=== PATIENT | female | born 1935 | race Caucasian/White ===

== ENCOUNTER 2018-03-31 07:39 | Inpatient (IN) ==
[2018-03-31] MEDS ORDERED: Morphine Inj 4 MG/ML Vial IV.PUSH ONE (07:57)
--- NOTE | 2018-03-31 07:57 | ED ---
HPI General Chief Complaint: Fall Stated Complaint: Fall Complaint Time Seen by Provider: 03/31/18 07:45 History of Present Illness HPI Narrative: This is a 83-year-old female with history of hypertension, who patient today with complaints of right wrist pain, right hip pain, right ankle pain after mechanical fall. Patient states that she was getting out of bed this morning about 5 AM when she became slightly dizzy and fell to the floor. She denies any loss of consciousness. She reports the pain as above. She states the pain is about a 2 out of 10 on the pain scale. There is no reported head neck or back pain. The patient states she takes a baby aspirin and is not on any other blood thinners. She last ate last night. Related Data Home Medications Medication Instructions Recorded Confirmed alendronate [Fosamax] 70 mg PO QWEEK 03/31/18 03/31/18 aspirin 81 mg PO DAILY 03/31/18 03/31/18 cholecalciferol (vitamin D3) 1,000 mg PO DAILY 03/31/18 03/31/18 [Vitamin D3] metoprolol tartrate 25 mg PO BID 03/31/18 03/31/18 multivitamin [Multiple Vitamins] 1 tab PO DAILY 03/31/18 03/31/18 Allergies Allergy/AdvReac Type Severity Reaction Status Date / Time No Known Allergies Allergy Verified 03/31/18 07:43 Review of Systems ROS: all other systems reviewed are negative Constitutional Reports system reviewed and no additional complaints, except as docu Eyes Reports system reviewed and no additional complaints, except as docu ENT Reports system reviewed and no additional complaints, except as docu Cardiovascular Denies chest pain, Denies syncope and Denies palpitations Respiratory Denies chest congestion, Denies cough and Denies dyspnea Gastrointestinal Denies abdominal pain, Denies nausea and Denies vomiting Genitourinary Reports system reviewed and no additional complaints, except as docu Musculoskeletal Denies back pain, Reports limited range of motion (Secondary to pain), Denies numbness, Denies tingling and Reports other (Right wrist, right hip, right ankle pain.) Neurologic Denies focal weakness, Denies numbness and Denies weakness PMF Medical History Medical History FH: cholecystectomy (Acute) FH: total knee replacement (Acute) H/O: hysterectomy (Acute) HTN (hypertension) (Acute) Surgical History Surgical History History of lumpectomy of right breast (Acute) Hx of tonsillectomy (Acute) Social History Social History Smoking Status: Former smoker How Often Do You Have a Drink Containing Alcohol: Never Recent Travel in [place] within the Last 8 Weeks: No Recent Out of Country Travel within the Last 8 Weeks: No Exam Narrative Exam Narrative: GENERAL: Well-developed well-nourished female who is lying supine. Patient is in no acute respiratory distress. SKIN: Focused skin assessment warm/dry. HEAD: Atraumatic. Normocephalic. EYES: No scleral icterus. No injection or drainage. ENT: No nasal bleeding or discharge. Mucous membranes pink and moist. NECK: Trachea midline. Supple. CARDIOVASCULAR: Regular rate and rhythm. No murmur appreciated. RESPIRATORY: No accessory muscle use. Clear to auscultation. Breath sounds equal bilaterally. GASTROINTESTINAL: Abdomen soft, non-tender, nondistended. No pulsatile masses. MUSCULOSKELETAL: Tenderness to palpation in the right wrist. There is bruising in the posterior wrist. Tenderness palpation over the right hip. No shortening of her right lower extremity. No external rotation. Patient also has subjective tenderness to the right lateral malleolus of the ankle. There is no obvious deformity noted. NEUROLOGICAL: Awake and alert. No obvious cranial nerve deficits. Motor grossly within normal limits. Normal speech. PSYCHIATRIC: Appropriate mood and affect; insight and judgment normal. Course Initial Documented Vital Signs Temperature 98.6 F 03/31/18 07:44 Pulse Rate 92 H 03/31/18 07:44 Respiratory Rate 16 03/31/18 07:44 Pulse Oximetry 94 L 03/31/18 07:44 Last Documented Vital Signs Temperature 98.6 F 03/31/18 07:44 Pulse Rate 92 H 03/31/18 07:44 Respiratory Rate 16 03/31/18 07:44 Pulse Oximetry 94 L 03/31/18 07:44 Medical Decision Making MDM Narrative Medical decision making narrative: 83-year-old female presents after falling while getting out of bed. Patient has a distal right radius intra-articular fracture. Patient also has a comminuted right intertrochanteric fracture. Patient will be admitted to the medicine service. There is a call out to the orthopedic physician. Preoperative labs, EKG and chest x-ray have been ordered. Patient is n.p.o. since last night. Medical Screen Exam Complete: Yes Emergency Medical Condition: Yes Differential Diagnosis Differential Diagnosis: Fracture versus dislocation versus contusion Imaging Data Radiologist's impression: Ankle X-Ray 03/31/18 07:45 CONCLUSION: No acute bony abnormalities. Soft tissue swelling laterally. Chest X-Ray 03/31/18 07:45 CONCLUSION: No acute findings. Hip X-Ray 03/31/18 07:45 CONCLUSION: Comminuted intertrochanteric fracture proximal right femur. Wrist X-Ray 03/31/18 07:45 CONCLUSION: Intra-articular fracture distal right radius. Discharge Plan Discharge Disposition Patient Disposition: 30 Still Patient Discharge Details Diagnosis: Closed comminuted intertrochanteric fracture of right femur, Fracture of radius , distal, right, closed Physicians Team ED Provider: Phillip Dillon Primary Care Provider: UNKNOWN, Rxs /Orders / Referrals /Forms Prescriptions: No Action multivitamin [Multiple Vitamins] Tablet 1 tab PO DAILY RF: 0 alendronate [Fosamax] 70 mg Tablet 70 mg PO QWEEK RF: 0 aspirin 81 mg Tablet,Chewable 81 mg PO DAILY RF: 0 cholecalciferol (vitamin D3) [Vitamin D3] 1,000 unit Capsule 1,000 mg PO DAILY RF: 0 metoprolol tartrate 25 mg Tablet 25 mg PO BID RF: 0 Status ED Status: With Doctor
--- NOTE | 2018-03-31 09:19 | XR ---
EXAM DATE: 03/31/2018 9:10 AM EDT AGE/SEX: 83 years / Female INDICATIONS: Fell this morning, pain right ankle, wrist and hip, right ankle appears swollen on late ral side CLINICAL DATA: This is the patient's initial encounter. Patient reports that signs and symptoms have been present for 1 day and indicates a pain score of 7/10. MEDICAL/SURGICAL HISTORY: None. None. COMPARISON: No prior exams available for comparison. FINDINGS: Mild soft tissue swelling. Normal alignment. Mild osteoarthritis. No acute bony abnormalities. CONCLUSION: No acute bony abnormalities. Soft tissue swelling laterally. Electronically signed by: Van Jaime MD 03/31/2018 9:17 AM EDT
--- NOTE | 2018-03-31 09:19 | XR ---
EXAM DATE: 03/31/2018 9:12 AM EDT AGE/SEX: 83 years / Female INDICATIONS: Fell today, pain right side of chest and ribs, right wrist, right hip and ankle CLINICAL DATA: This is the patient's initial encounter. Patient reports that signs and symptoms have been present for 1 day and indicates a pain score of 4/10. MEDICAL/SURGICAL HISTORY: None. None. COMPARISON: No prior exams available for comparison. FINDINGS: A single AP view of the chest demonstrates the lungs to be symmetrically aerated without evidence of mass, infiltrate or effusion. The cardiomediastinal contours are unremarkable. Osseous structures a re intact. CONCLUSION: No acute findings. Electronically signed by: Van Jaime MD 03/31/2018 9:18 AM EDT
--- NOTE | 2018-03-31 09:20 | XR ---
EXAM DATE: 03/31/2018 9:14 AM EDT AGE/SEX: 83 years / Female INDICATIONS: Fell today, right hip pain CLINICAL DATA: This is the patient's initial encounter. Patient reports that signs and symptoms have been present for 1 day and indicates a pain score of 8/10. MEDICAL/SURGICAL HISTORY: None. None. COMPARISON: No prior exams available for comparison. FINDINGS: There is a slightly comminuted intertrochanteric fracture of the proximal right femur with varus angu lation. No dislocation. Bones are osteopenic. CONCLUSION: Comminuted intertrochanteric fracture proximal right femur. Electronically signed by: Van Jaime MD 03/31/2018 9:19 AM EDT
--- NOTE | 2018-03-31 09:23 | XR ---
EXAM DATE: 03/31/2018 9:17 AM EDT AGE/SEX: 83 years / Female INDICATIONS: Fell today, right wrist pain CLINICAL DATA: This is the patient's initial encounter. Patient reports that signs and symptoms have been present for 1 day and indicates a pain score of 9/10. MEDICAL/SURGICAL HISTORY: None. None. COMPARISON: No prior exams available for comparison. FINDINGS: There is a mildly displaced intra-articular fracture of the distal radius. No dislocation. 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 Osteopenia. CONCLUSION: Intra-articular fracture distal right radius. Electronically signed by: Van Jaime MD 03/31/2018 9:22 AM EDT
--- NOTE | 2018-03-31 10:07 | P.HPFP ---
History of Present Illness Primary Care Physician: UNKNOWN History of Present Illness: This patient is an 83-year-old female with a history of bilateral knee replacement and hypertension who presents the ED after an unwitnessed mechanical fall. Patient is originally from [place] and is here locally visiting her granddaughter with her daughter and son-in-law. Patient reports that she originally got up around 0630 to go to the restroom and upon getting out of bed felt lightheaded and fell onto a carpeted floor. Per patient she fell onto her right hand side landing on her outstretched hand as well as her right hip and denies ever hitting her head. Patient reports pain immediately after falling. Patient reports that at no point did she perceive a gap in time or felt that she had lost consciousness, there is no confusion immediately afterwards, she did not have any incontinence. Patient reports he was on the floor for approximately an hour before found by family. 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 Family reports no shaking upon finding the patient on the floor. The patient reports no change in vision prior to falling, no chest pain or palpitations, no nausea or vomiting, or any focal weakness or loss of tone. Patient reports no changes in recent health and has been eating and drinking normally and felt that she is very hydrated. She does report feeling dizzy last night and according to granddaughter her gait was a little less sturdy than usual. According to the patient there are rare circumstances where she has felt dizzy in the past but has never had a mechanical fall due to her dizziness. She has also experienced imbalance intermittently for many years. She denies any recent illnesses, difficulty urinating, urinary urgency, pain with urination, chest pain, chest palpitations , fevers, chills, nausea or vomiting. PMHx: Hypertension, fibroids status post total hysterectomy, "leaky heart valve " Surgical Hx: Bilateral knee replacement, umbilical hernia repair, tonsillectomy , right breast lumpectomy with benign pathology, cholecystectomy, total vaginal hysterectomy with bilateral salpingo-oophorectomy Medications: Alendronate, aspirin, vitamin D, metoprolol, multivitamin FHx: Sister had breast cancer, sister had stroke, another sister had Alzheimer's , brother had unknown type of cancer. Children are healthy. Social Hx: Patient has been for the last 25 years and lives at home alone in [place]. Her daughter lives next door as well as multiple grandchildren that live in the area. 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 She reports smoking 1/4 pack for 20 years. Patient denies any current use of alcohol as well as any other illicit or nonprescribed drugs. Allergies: None that she knows of but reports that have been foods and fast to make her swell up Code Status: DNR - Diagnosis (1) Closed comminuted intertrochanteric fracture of right femur (2) Fracture of radius, distal, right, closed (3) Lightheadedness (4) Hypertension (5) Nutrition, metabolism, and development symptoms Review of Systems Constitutional: Denies chills, Denies fever(s), Denies headache(s), Denies dizziness, Head and neck: Patient denies any headache, neck pain or head trauma Eyes: Denies change in vision, Denies double vision, Denies blurry vision Cardiovascular: Denies chest pain, Denies fast heart rate, Denies rapid, pounding, or irregular heartbeat Respiratory: Denies shortness of breath or wheezing Gastrointestinal: Denies abdominal pain, Denies constipation, Denies loose stools, Denies nausea, Denies vomiting Genitourinary: Denies difficulty urinating, Denies painful urination, Denies urinary frequency, Denies blood in urine, patient also denies any fecal or urinary incontinence Neurological: Patient denies any loss of consciousness, focal weakness, or confusion. Musculoskeletal: Patient reports significant pain in right hip as well as right arm. She also reports soreness under the left breast. Psychiatric: Patient reports no confusion PMFSH - History History Provided By: Patient - Medical History Medical History: Medical History (Last Updated 03/31/18 @ 07:50 by Kim Davis) FH: cholecystectomy FH: total knee replacement H/O: hysterectomy HTN (hypertension) - Surgical History Surgical History: Surgical History (Last Updated 03/31/18 @ 07:50 by Kim Davis) History of lumpectomy of right breast Hx of tonsillectomy - Tobacco History Smoking Status: Former smoker - Alcohol History How Often Do You Have a Drink Containing Alcohol: Never - Travel History Recent Travel in the [place] Within the Last 8 Weeks: No Recent Travel Out of the Country Within the Last 8 Weeks: No - Immunization History Tetanus Immunization: Unsure Medications and Allergies Allergies Allergy/AdvReac Type Severity Reaction Status Date / Time No Known Allergies Allergy Verified 03/31/18 07:43 Home Medications Medication Instructions Recorded Confirmed Type alendronate [Fosamax] 70 mg PO QWEEK 03/31/18 03/31/18 History aspirin 81 mg PO DAILY 03/31/18 03/31/18 History cholecalciferol (vitamin D3) 1,000 mg PO DAILY 03/31/18 03/31/18 History [Vitamin D3] metoprolol tartrate 25 mg PO BID 03/31/18 03/31/18 History multivitamin [Multiple Vitamins] 1 tab PO DAILY 03/31/18 03/31/18 History Exam Vital signs: Vital Signs 03/31/18 07:44 Temperature 98.6 F Pulse Rate 92 H Respiratory Rate 16 Pulse Oximetry 94 L Intake & Output 03/30/18 03/31/18 03/31/18 18:59 06:59 18:59 Weight 81.647 kg Narrative: GENERAL: Elderly well-nourished, well-developed patient. No acute distress. Patient is hard of hearing and had to raise my voice for the duration of the exam. SKIN: Warm and dry. No rash. EYES: No scleral icterus. No injection or drainage. PERRLA. EOMI. HEAD: No lacerations or abrasions on scalp noted no gross deformities appreciated. NECK: Supple, trachea midline. No JVD or lymphadenopathy. CARDIOVASCULAR: Regular rate and rhythm without obvious murmurs, gallops, or rubs. RESPIRATORY: Breath sounds equal bilaterally. No accessory muscle use. CTAB. GASTROINTESTINAL: Abdomen soft, non-tender, nondistended. BS WNL. MUSCULOSKELETAL: Right leg approximately 4-5 cm shorter than left and externally rotated, significant plantar arch in both feet bilaterally. DP pulse 2+ on left 1+ on right. Sensation intact in both lower extremities with good capillary refill. No discoloration overlying lower extremities. Right arm bandaged but had no gross deformities prior to splinting. Tenderness to palpation on ribs under the left breast. Tenderness over right hip. BACK: Unable to evaluate due to pain upon moving. NEURO/PSYCH: Afocal. Awake, alert, and oriented x3. Results - Labs Result diagrams: 03/31/18 09:30 03/31/18 09:30 - Imaging Impressions Ankle X-Ray 03/31/18 07:45 CONCLUSION: No acute bony abnormalities. Soft tissue swelling laterally. Chest X-Ray 03/31/18 07:45 CONCLUSION: No acute findings. Hip X-Ray 03/31/18 07:45 CONCLUSION: Comminuted intertrochanteric fracture proximal right femur. Wrist X-Ray 03/31/18 07:45 CONCLUSION: Intra-articular fracture distal right radius. Caprini VTE Risk Assessment Caprini VTE Risk Assessment: Moderate/High Risk (score >= 2) Caprini Risk Assessment Model: Point Value = 1 Point Value = 2 Point Value = 3 Point Value = 5 Age 41-60 Minor surgery BMI > 25 kg/m2 Swollen legs Varicose veins or History of unexplained or recurrent spontaneous Oral contraceptives or hormone replacement Sepsis (< 1 month) Serious lung disease, including pneumonia (< 1 month) Abnormal pulmonary function Acute myocardial infarction Congestive heart failure (< 1 month) History of inflammatory bowel disease Medical patient at bed rest Age 61-74 Arthroscopic surgery Major open surgery (> 45 min) Laparoscopic surgery (> 45 min) Malignancy Confined to bed (> 72 hours) Immobilizing plaster cast Central venous access Age >= 75 History of VTE Family history of VTE Factor V Leiden Prothrombin [id number] Lupus anticoagulant Anticardiolipin antibodies Elevated serum homocysteine Heparin-induced thrombocytopenia Other congenital or acquired thrombophilia Stroke (< 1 month) Elective arthroplasty Hip, pelvis, or leg fracture Acute spinal cord injury (< 1 month) Prophylaxis Regimen: Total Risk Factor Score Risk Level Prophylaxis Regimen 0-1 Low Early ambulation 2 Moderate Order ONE of the following: *Sequential Compression Device (SCD) *Heparin 5000 units SQ BID 3-4 Higher Order ONE of the following medications: *Heparin 5000 units SQ TID *Enoxaparin/Lovenox 40 mg SQ daily (WT < 150 kg, CrCl > 30 mL/min) *Enoxaparin/Lovenox 30 mg SQ daily (WT < 150 kg, CrCl > 10-29 mL/min) *Enoxaparin/Lovenox 30 mg SQ BID (WT < 150 kg, CrCl > 30 mL/min) AND/OR *Sequential Compression Device (SCD) 5 or more Highest Order ONE of the following medications: *Heparin 5000 units SQ TID (Preferred with Epidurals) *Enoxaparin/Lovenox 40 mg SQ daily (WT < 150 kg, CrCl > 30 mL/min) *Enoxaparin/Lovenox 30 mg SQ daily (WT < 150 kg, CrCl > 10-29 mL/min) *Enoxaparin/Lovenox 30 mg SQ BID (WT < 150 kg, CrCl > 30 mL/min) AND *Sequential Compression Device (SCD) Assessment and Plan - Assessment (1) Closed comminuted intertrochanteric fracture of right femur Code(s): S72.141A - Displaced intertrochanteric fracture of right femur, initial encounter for closed fracture Status: Acute Plan: This patient is an 83-year-old female with a history of bilateral knee replacement and hypertension who has been admitted after sustaining a close comminuted intertrochanteric fracture of the right femur and close fracture of the distal right radius after an unwitnessed mechanical fall. -Comminuted intertrochanteric fracture proximal right femur. -CXR No acute findings. -Right Ankle X-ray: No acute bony abnormalities. Soft tissue swelling laterally. -Xray of the Right femur: Right proximal femur fracture with displaced trochanteric fragments identified. -Follow-up with orthopedic consult for possible surgery today or tomorrow -NPO until orthopedic evaluation -Pain control; [place] 5 pain scale 3-5, [place] 7.5 pain scale 6-10 every 4 as needed, morphine 4 mg every 3 as needed for breakthrough (2) Fracture of radius, distal, right, closed Code(s): S52.501A - Unspecified fracture of the lower end of right radius, initial encounter for closed fracture Status: Acute Plan: Patient suffered an intra-articular fracture of the distal right radius after unwitnessed mechanical fall. -X-ray of the wrist: Intra-articular fracture distal right radius -Follow-up with orthopedic evaluation -Pain control as stated above (3) Lightheadedness Code(s): R42 - Dizziness and giddiness Status: Acute Plan: Patient reports feeling lightheaded before falling without LOC or incontinence. Patient's fall was unwitnessed. Lightheadedness possibly due to arrhythmia in the setting of an EKG on arrival showed nonspecific ST and T wave abnormalities. -Telemetry -EKG -Trend troponin -Trend CKMB (4) Hypertension Code(s): I10 - Essential (primary) hypertension Status: Acute Plan: Patient reports having history of hypertension. Her blood pressure on arrival to the hospital was 129/60. -Patient to continue home medication, metoprolol 25 twice daily (5) Nutrition, metabolism, and development symptoms Code(s): R63.8 - Other symptoms and signs concerning food and fluid intake Status: Acute Plan: Fluids: Normal saline at 120 mL/h Electrolytes: Replete as needed Nutrition: N.p.o. until orthopedic evaluation DVT prophylaxis: SCDs (1) Closed comminuted intertrochanteric fracture of right femur Qualifiers: Encounter type: initial encounter Qualified Code(s): S72.141A - Displaced intertrochanteric fracture of right femur, initial encounter for closed fracture (2) Fracture of radius, distal, right, closed Qualifiers: Encounter type: initial encounter
[2018-03-31 10:17] LABS: Baso # (Auto) 0.1 th/mm3 (0.0-0.2); Baso % (Auto) 0.5 % (0.0-2.0); Eos # (Auto) 0.1 th/mm3 (0.0-0.4); Eos % (Auto) 0.5 % (0.0-4.0); Hemoglobin 13.8 gm/dL (11.6-15.3); Lymph # (Auto) 0.9 th/mm3 (1.0-4.8); Lymph % (Auto) 7.3 % (9.0-44.0); Mean Corpuscular HGB Conc 32.8 % (32.0-36.0); Mean Corpuscular Hemoglobin 28.2 pg (27.0-34.0); Mean Corpuscular Volume 85.9 fL (80.0-100.0); Mean Platelet Volume 8.1 fL (7.0-11.0); Mono # (Auto) 0.8 th/mm3 (0.0-0.9); Neut # (Auto) 10.7 th/mm3 (1.8-7.7); Neut % (Auto) 85.7 % (16.0-70.0); Platelet Count 195 th/mm3 (150-450); Red Blood Count 4.89 mil/mm3 (4.00-5.30); Red Cell Distribution Width 14.7 % (11.6-17.2); White Blood Count 12.4 th/mm3 (4.0-11.0)
[2018-03-31 10:34] LABS: Alanine Aminotransferase 22 U/L (10-53); Albumin 3.5 g/dL (3.4-5.0); Anion Gap 11 meq/L (5-15); Aspartate Aminotransferase 21 U/L (15-37); Blood Urea Nitrogen 26 mg/dL (7-18); Calcium 9.4 mg/dL (8.5-10.1); Carbon Dioxide 25.2 meq/L (21.0-32.0); Chloride 108 meq/L (98-107); Glomerular Filtration Rate 56 mL/min (>89); Glucose,Random 132 mg/dL (74-106); Potassium 3.6 meq/L (3.5-5.1); Sodium 144 meq/L (136-145)
[2018-03-31 10:37] LABS: Alkaline Phosphatase 61 U/L (45-117); Total Protein 6.6 g/dL (6.4-8.2)
[2018-03-31] MEDS ORDERED: Acetaminophen 325 MG Tablet PO PRN (10:44)
[2018-03-31] MEDS ORDERED: Morphine Inj 4 MG/ML Vial IV.PUSH PRN (10:44)
[2018-03-31] MEDS ORDERED: Naloxone Inj 0.4 MG/ML Vial IV.PUSH PRN (10:44)
[2018-03-31] MEDS: Sod Chloride 0.9% Inj 1,000 ML IV.CONT SCH ×2 (10:56→19:20)
[2018-03-31 11:18] LABS: Bacteria,Urine Occasional /hpf; Bilirubin,Urine Negative (Negative); Clarity,Urine Hazy (Clear); Color,Urine Yellow (Yellw/Straw); Glucose,Urine (UA) Negative (Negative); Hyaline Casts,Urine 11 /lpf (0-3); Leukocyte Esterase,Urine Small (Negative); Nitrite,Urine Negative (Negative); Specific Gravity,Urine 1.012 (1.002-1.035); Squamous Epithelial Cell,Urine <1 /hpf (0-5)
--- NOTE | 2018-03-31 11:55 | XR ---
EXAM DATE: 03/31/2018 11:51 AM EDT AGE/SEX: 83 years / Female INDICATIONS: Fracture. CLINICAL DATA: This is the patient's initial encounter. Patient reports that signs and symptoms have been present for 1 day and indicates a pain score of 5/10. MEDICAL/SURGICAL HISTORY: None. None. COMPARISON: C, HIP RIGHT W AP PELVIS 2V, 03/31/2018. . FINDINGS: Comminuted and displaced proximal femur fracture the level of the trochanters is again seen. A total knee arthroplasty is identified. The bone density is diminished. CONCLUSION: Right proximal femur fracture with displaced trochanteric fragments identified. Electronically signed by: Eder Peraza MD 03/31/2018 11:53 AM EDT
[2018-03-31] MEDS: Metoprolol Tartrate 25 MG Tablet PO SCH ×2 (13:22→20:14)
--- NOTE | 2018-03-31 15:13 | US ---
EXAM DATE: 03/31/2018 2:44 PM EDT AGE/SEX: 83 years / Female INDICATIONS: Weakness. CLINICAL DATA: This is the patient's initial encounter. Patient reports that signs and symptoms have been present for 1 day and indicates a pain score of 4/10. MEDICAL/SURGICAL HISTORY: Hypertension. Cholecystectomy. Hysterectomy. Tonsillectomy. Knee r eplacement. Lumpectomy of right breast. COMPARISON: . VELOCITY PARAMETERS: ICA/CCA Ratio: Right 1.8 , Left 1.8 ICA: Right 105 cm/sec, Left 136 cm/sec CCA: Right 59 cm/sec, Left 75 cm/sec ECA: Right 152 cm/sec, Left 77 cm/sec Vertebral: Right 47 cm/sec antegrade, Left 70 cm/sec antegrade FINDINGS: Right Carotid: Mild arteriosclerotic plaque is visualized.The waveforms are within normal limits. Left Carotid: No significant plaque is visualized. The waveforms are within normal limits. Other: None. CONCLUSION: 1. Right Internal Carotid Artery: Mild to moderate visible plaque without significant stenosis. 2. Left Internal Carotid Artery: Mild to moderate visible plaque without significant stenosis. Electronically signed by: Van Jaime MD 03/31/2018 3:12 PM EDT
[2018-03-31] MEDS ORDERED: Aspirin 325 MG Tablet PO ONE (16:00)
[2018-03-31 16:09] LABS: Troponin I 0.03 ng/mL (0.02-0.05)
[2018-03-31 16:32] LABS: CKMB Percent 1.1 % (0.0-4.0); Creatine Kinase MB 2.4 ng/mL (0.5-3.6)
--- NOTE | 2018-03-31 20:38 | P.CONOP ---
[facility] Orthopedics Consult Note - [facility] Consult date: 03/31/18 Requesting physician: Phillip Dillon Consult reason: fracture Chief complaint: R hip Fracture,right wrist fracture Narrative: 83 year old female visiting from [place] who sustained a fall at home this morning while getting out of bed. She injured her right hip and right wrist. She was taken to the ED where imaging revealed a right distal radius fracture and right hip fracture. Orthopedics was consulted for further management. Review of Systems All other systems reviewed negative except as stated in [facility] PMFSH - History History Provided By: Patient - Medical History Medical History: Medical History (Last Reviewed 03/31/18 @ 20:25 by Karen Moore MD) FH: cholecystectomy FH: total knee replacement H/O: hysterectomy HTN (hypertension) - Surgical History Surgical History: Surgical History (Last Reviewed 03/31/18 @ 20:25 by Karen Moore MD) History of lumpectomy of right breast Hx of tonsillectomy - Social History I have reviewed the patient's Social History: Yes - Tobacco History Second Hand Smoke Exposure: No Smoking Status: Never smoker - Alcohol History How Often Do You Have a Drink Containing Alcohol: Never - Substance Use History Substance History: No History of Abuse - Travel History Recent Travel in the [place] Within the Last 8 Weeks: No Recent Travel Out of the Country Within the Last 8 Weeks: No - Immunization History Tetanus Immunization: >5 Years Hx Influenza Vaccine This Season: Yes Medications and Allergies Active Medications: Active Medications Acetaminophen (Tylenol) 650 mg PO Q6HR PRN PRN Reason: PAIN SCALE 1 TO 2 Hydrocodone Bitart/Acetaminophen ([place] 5/325) 1 tab PO Q4H PRN PRN Reason: PAIN SCALE 3 TO 5 Hydrocodone Bitart/Acetaminophen ([place] 7.5/325) 1 tab PO Q4H PRN PRN Reason: PAIN SCALE 6 TO 10 Alendronate Sodium (Fosamax) 70 mg PO WEEKLY DIETER Sodium Chloride (Ns Inj) 1,000 mls @ 120 mls/hr IV.CONT .Q8H20M DIETER Last Admin: 03/31/18 10:56 Dose: 120 mls/hr Cefazolin Sodium/Dextrose (Ancef 2 Gm Premix Inj) 2 gm in 50 mls @ 100 mls/hr IV.SIG ONCE ONE Stop: 04/01/18 07:29 Metoprolol Tartrate (Lopressor) 25 mg PO BID [facility] Last Admin: 03/31/18 13:22 Dose: Not Given Morphine Sulfate (Morphine Inj) 4 mg IV.PUSH Q3H PRN PRN Reason: BREAKTHROUGH PAIN Multivitamins (Theragran) 1 tab PO DAILY [facility] Naloxone HCl (Narcan Inj) 0.4 mg IV.PUSH UNSCH PRN PRN Reason: SEE LABEL COMMENTS Sodium Chloride (Ns Flush) 2 ml IV.FLUSH BID [facility] Sodium Chloride (Ns Flush) 2 ml IV.FLUSH UNSCH PRN PRN Reason: FLUSH AFTER USING IV ACCESS Vitamin D (Vitamin D3) 1,000 unit PO DAILY [facility] Allergies Allergy/AdvReac Type Severity Reaction Status Date / Time No Known Allergies Allergy Verified 03/31/18 07:43 Home Medications Medication Instructions Recorded Confirmed Type alendronate [Fosamax] 70 mg PO QWEEK 03/31/18 03/31/18 History aspirin 81 mg PO DAILY 03/31/18 03/31/18 History cholecalciferol (vitamin D3) 1,000 mg PO DAILY 03/31/18 03/31/18 History [Vitamin D3] metoprolol tartrate 25 mg PO BID 03/31/18 03/31/18 History multivitamin [Multiple Vitamins] 1 tab PO DAILY 03/31/18 03/31/18 History Exam Vital signs: Vital Signs 03/31/18 07:44 03/31/18 11:00 03/31/18 12:34 Temperature 98.6 F Pulse Rate 92 H 78 81 Respiratory Rate 16 16 16 Blood Pressure 106/68 129/60 Pulse Oximetry 94 L 98 97 03/31/18 16:55 Temperature 98.2 F Pulse Rate 87 Respiratory Rate 17 Blood Pressure 111/59 L Pulse Oximetry 95 Intake & Output 03/31/18 03/31/18 04/01/18 06:59 18:59 06:59 Weight 81.647 kg - Constitutional no acute distress - Routine HEENT Exam Head: Present: normocephalic - Routine Neck Exam Present: supple - Routine Respiratory Exam Absent: accessory muscle use - Routine Cardiovascular Exam Present: RRR - Routine Extremities Exam Comments: right lower extremity in Culver's traction. Tender to palpation over the hip. Well healed TKA incision. Able to wiggle all toes and sensation intact with good capillary refill. right upper extremity splinted. She has mild bruising and swelling of the fingers but good capillary refill and intact sensation. +TU/OK/FC. left upper and lower extremities unremarkable. - Routine Skin Exam Present: intact Results - Labs Result Diagrams: 03/31/18 09:30 03/31/18 09:30 Labs: Laboratory Results - last 24 hr 03/31/18 03/31/18 03/31/18 09:30 09:30 09:30 WBC 12.4 H RBC 4.89 Hgb 13.8 Hct 42.0 MCV 85.9 MCH 28.2 MCHC 32.8 RDW 14.7 Plt Count 195 MPV 8.1 Neut % (Auto) 85.7 H Lymph % (Auto) 7.3 L [place] % (Auto) 6.0 Eos % (Auto) 0.5 Baso % (Auto) 0.5 Neut # (Auto) 10.7 H Lymph # (Auto) 0.9 L [place] # (Auto) 0.8 Eos # (Auto) 0.1 Baso # (Auto) 0.1 WBC Differential . Differential Comment Auto diff final Sodium 144 Potassium 3.6 Chloride 108 H Carbon Dioxide 25.2 Anion Gap 11 BUN 26 H Creatinine 0.95 Estimated GFR 56 L Random Glucose 132 H Calcium 9.4 Total Bilirubin 0.7 AST 21 ALT 22 Alkaline Phosphatase 61 Total Creatine Kinase CK-MB (CK-2) CK-MB (CK-2) % Troponin I Total Protein 6.6 Albumin 3.5 Urine Color Urine Clarity Urine pH Ur Specific [place] Urine Protein Urine Glucose (UA) Urine Ketones Urine Occult Blood Urine Nitrate Urine Bilirubin Urine Urobilinogen Ur Leukocyte Esterase Urine RBC Urine WBC Ur Squamous Epith Cells Urine Bacteria Hyaline Casts Micro UA Comment Ur Microscopic Review Urine Culture Comments Blood Type B Negative Blood Type Recheck Required Antibody Screen Negative 03/31/18 03/31/18 10:53 14:28 WBC RBC Hgb Hct MCV MCH MCHC RDW Plt Count MPV Neut % (Auto) Lymph % (Auto) [place] % (Auto) Eos % (Auto) Baso % (Auto) Neut # (Auto) Lymph # (Auto) [place] # (Auto) Eos # (Auto) Baso # (Auto) WBC Differential Differential Comment Sodium Potassium Chloride Carbon Dioxide Anion Gap BUN Creatinine Estimated GFR Random Glucose Calcium Total Bilirubin AST ALT Alkaline Phosphatase Total Creatine Kinase 216 H CK-MB (CK-2) 2.4 CK-MB (CK-2) % 1.1 Troponin I 0.03 Total Protein Albumin Urine Color Yellow Urine Clarity Hazy H Urine pH 5.0 Ur Specific [place] 1.012 Urine Protein Negative Urine Glucose (UA) Negative Urine Ketones Negative Urine Occult Blood Negative Urine Nitrate Negative Urine Bilirubin Negative Urine Urobilinogen Less than 2 Ur Leukocyte Esterase Small H Urine RBC 1 Urine WBC 1 Ur Squamous Epith Cells <1 Urine Bacteria Occasional H Hyaline Casts 11 Micro UA Comment Cath-culture not ind Ur Microscopic Review Not Reportable Urine Culture Comments Cath-cult not ind Blood Type Blood Type Recheck Antibody Screen - Diagnostic results Imaging: Impressions Carotid Doppler Study 03/31/18 00:00 CONCLUSION: 1. Right Internal Carotid Artery: Mild to moderate visible plaque without significant stenosis. 2. Left Internal Carotid Artery: Mild to moderate visible plaque without significant stenosis. Femur X-Ray 03/31/18 00:00 CONCLUSION: Right proximal femur fracture with displaced trochanteric fragments identified. Ankle X-Ray 03/31/18 07:45 CONCLUSION: No acute bony abnormalities. Soft tissue swelling laterally. Chest X-Ray 03/31/18 07:45 CONCLUSION: No acute findings. Hip X-Ray 03/31/18 07:45 CONCLUSION: Comminuted intertrochanteric fracture proximal right femur. Wrist X-Ray 03/31/18 07:45 CONCLUSION: Intra-articular fracture distal right radius. Wrist/Hand x-ray: report reviewed, image reviewed Hip x-ray: report reviewed, image reviewed Assessment and Plan - Problem List (1) Closed comminuted intertrochanteric fracture of right femur Code(s): S72.141A - Displaced intertrochanteric fracture of right femur, initial encounter for closed fracture Status: Acute Qualifiers: Encounter type: initial encounter Qualified Code(s): S72.141A - Displaced intertrochanteric fracture of right femur, initial encounter for closed fracture (2) Fracture of radius, distal, right, closed Code(s): S52.501A - Unspecified fracture of the lower end of right radius, initial encounter for closed fracture Status: Acute Qualifiers: Encounter type: initial encounter - Assessment and Plan 83 year old female with right intertrochanteric femur fracture and right distal radius fracture Plan: To OR tomorrow for fixation of right hip fracture, closed reduction and casting of right distal radius fracture. Risks, benefits and alternatives were discussed with the patient and family including risks of infection, bleeding, neurovascular injury, nonunion, malunion, failure of fixation, possible need for further surgeries and they wished to proceed with surgery. NPO after midnight.
[2018-03-31 23:24] LABS: Troponin I 0.02 ng/mL (0.02-0.05)
[2018-03-31 23:36] LABS: CKMB Percent 0.7 % (0.0-4.0); Creatine Kinase MB 1.8 ng/mL (0.5-3.6)
[2018-04-01] MEDS ORDERED: Sodium Chlor 0.9% Inj 500 ML IV.CONT ONE (03:15)
[2018-04-01] MEDS ORDERED: Chlorhexidine Gluconate 2% 1 Pack (2 Cloths) TOPICAL ONE (03:15)
[2018-04-01] MEDS: Sod Chloride 0.9% Inj 1,000 ML IV.CONT SCH ×2 (04:49→14:06)
[2018-04-01 05:38] LABS: Hematocrit 32.7 % (35.0-46.0); Hemoglobin 11.1 gm/dL (11.6-15.3); Mean Corpuscular HGB Conc 33.9 % (32.0-36.0); Mean Corpuscular Hemoglobin 29.3 pg (27.0-34.0); Mean Corpuscular Volume 86.5 fL (80.0-100.0); Platelet Count 174 th/mm3 (150-450); Red Blood Count 3.78 mil/mm3 (4.00-5.30); Red Cell Distribution Width 14.6 % (11.6-17.2); White Blood Count 6.3 th/mm3 (4.0-11.0)
[2018-04-01 06:00] LABS: Calcium 8.2 mg/dL (8.5-10.1); Carbon Dioxide 28.2 meq/L (21.0-32.0); Potassium 4.1 meq/L (3.5-5.1)
[2018-04-01] MEDS ORDERED: ceFAZolin 2 GM Premix Inj 2 GM/50 ML PIGGYBACK IV.SIG ONE (07:00)
[2018-04-01] MEDS: Metoprolol Tartrate 25 MG Tablet PO SCH ×3 (07:22→20:51)
[2018-04-01] MEDS ORDERED: Ketamine Inj 500 MG/10 ML Vial ONE (07:46)
[2018-04-01] MEDS ORDERED: Ketorolac Inj 30 MG/ML (IVP) Vial IV.PUSH ONE (07:51)
[2018-04-01] MEDS ORDERED: Glycopyrrolate Inj 1 MG/5 ML Syringe IV.PUSH ONE (07:51)
[2018-04-01] MEDS ORDERED: Lidocaine PF 1% Inj 5 ML Syringe OTHER ONE (07:51)
[2018-04-01] MEDS ORDERED: Phenylephrine/NS 1000 MCG/10ML Syringe IV.PUSH ONE (07:51)
[2018-04-01] MEDS ORDERED: Neostigmine Inj 5 MG/5 ML Syringe IV.PUSH ONE (07:51)
[2018-04-01 11:18] LABS: Baso % (Auto) 0.5 % (0.0-2.0); Eos # (Auto) 0.1 th/mm3 (0.0-0.4); Eos % (Auto) 0.7 % (0.0-4.0); Hemoglobin 9.7 gm/dL (11.6-15.3); Lymph % (Auto) 12.5 % (9.0-44.0); Mean Corpuscular HGB Conc 33.3 % (32.0-36.0); Mean Corpuscular Hemoglobin 28.9 pg (27.0-34.0); Mean Corpuscular Volume 86.6 fL (80.0-100.0); Mean Platelet Volume 8.2 fL (7.0-11.0); Mono # (Auto) 1.3 th/mm3 (0.0-0.9); Mono % (Auto) 16.2 % (0.0-8.0); Neut # (Auto) 5.5 th/mm3 (1.8-7.7); Neut % (Auto) 70.1 % (16.0-70.0); Platelet Count 177 th/mm3 (150-450); Red Blood Count 3.35 mil/mm3 (4.00-5.30); Red Cell Distribution Width 14.4 % (11.6-17.2); White Blood Count 7.8 th/mm3 (4.0-11.0)
--- NOTE | 2018-04-01 11:50 | P.BOP ---
Date of procedure: 04/01/18 Procedure: right hip open reduction internal fixation, right wrist closed reduction and casting Implants: PlasmaSi [id number] [id number], 90 mm blade Surgeon: Karen Moore MD Estimated blood loss (mL): 250 Pathology: none sent Condition: stable Disposition: PACU
[2018-04-01] MEDS ORDERED: fentaNYL Citrate Inj 100 MCG/2 ML Ampul ONE (11:57)
--- NOTE | 2018-04-01 14:37 | P.PNFP ---
Subjective Interval history: 83 yo female with HTN admitted for right hip and wrist fracture after mechanical fall. Now POD 0 s/p right hip open reduction internal fixation, right wrist closed reduction and casting. Reports feeling well post- operatively. Pain well-controlled. No CP/SOB. <BowensSloan richey Kenna - 04/01/18 14:37> Results - Labs Result diagrams: 04/02/18 14:46 04/02/18 06:29 <Valentín Forman - 04/02/18 18:41> Abnormal lab results 04/02/18 04/02/18 04/02/18 Range/Units 06:29 06:29 14:46 RBC 2.84 L (4.00-5.30) mil/mm3 Hgb 8.4 L 8.2 L (11.6-15.3) gm/dL Hct 24.3 L 24.7 L (35.0-46.0) % Plt Count 136 L (150-450) th/mm3 Neut % (Auto) 78.3 H (16.0-70.0) % Lymph % (Auto) 8.2 L (9.0-44.0) % [place] % (Auto) 13.2 H (0.0-8.0) % Neut # (Auto) 7.8 H (1.8-7.7) th/mm3 Lymph # (Auto) 0.8 L (1.0-4.8) th/mm3 [place] # (Auto) 1.3 H (0.0-0.9) th/mm3 Chloride 109 H (98-107) meq/L BUN 25 H (7-18) mg/dL Estimated GFR 57 L (>89) mL/min Random Glucose 136 H (74-106) mg/dL Calcium 7.7 L (8.5-10.1) mg/dL Total Creatine Kinase 1039 H (26-192) U/L CK-MB (CK-2) 11.9 H (0.5-3.6) ng/mL Short CBC 04/02/18 04/02/18 Range/Units 06:29 14:46 WBC 9.9 (4.0-11.0) th/mm3 Hgb 8.4 L 8.2 L (11.6-15.3) gm/dL Hct 24.3 L 24.7 L (35.0-46.0) % Plt Count 136 L (150-450) th/mm3 BMP 04/02/18 06:29 Sodium 142 Potassium 4.2 Chloride 109 H Carbon Dioxide 27.0 BUN 25 H Creatinine 0.94 Calcium 7.7 L Cardiac Enzymes 04/02/18 Range/Units 06:29 Total Creatine Kinase 1039 H (26-192) U/L CK-MB (CK-2) 11.9 H (0.5-3.6) ng/mL <Valentín Forman - 04/02/18 18:41> Abnormal lab results 03/31/18 03/31/18 04/01/18 Range/Units 14:28 22:43 05:00 RBC 3.78 L (4.00-5.30) mil/mm3 Hgb 11.1 L D (11.6-15.3) gm/dL Hct 32.7 L (35.0-46.0) % Neut % (Auto) (16.0-70.0) % [place] % (Auto) (0.0-8.0) % [place] # (Auto) (0.0-0.9) th/mm3 Chloride (98-107) meq/L BUN (7-18) mg/dL Creatinine (0.50-1.00) mg/dL Estimated GFR (>89) mL/min Random Glucose (74-106) mg/dL Calcium (8.5-10.1) mg/dL Total Creatine Kinase 216 H 275 H (26-192) U/L MTS Gel Crossmatch 04/01/18 04/01/18 04/01/18 Range/Units 05:00 10:34 10:59 RBC 3.35 L (4.00-5.30) mil/mm3 Hgb 9.7 L (11.6-15.3) gm/dL Hct 29.0 L (35.0-46.0) % Neut % (Auto) 70.1 H (16.0-70.0) % [place] % (Auto) 16.2 H (0.0-8.0) % [place] # (Auto) 1.3 H (0.0-0.9) th/mm3 Chloride 108 H (98-107) meq/L BUN 26 H (7-18) mg/dL Creatinine 1.01 H (0.50-1.00) mg/dL Estimated GFR 52 L (>89) mL/min Random Glucose 149 H (74-106) mg/dL Calcium 8.2 L D (8.5-10.1) mg/dL Total Creatine Kinase (26-192) U/L MTS Gel Crossmatch See Detail Short CBC 04/01/18 04/01/18 Range/Units 05:00 10:34 WBC 6.3 7.8 (4.0-11.0) th/mm3 Hgb 11.1 L D 9.7 L (11.6-15.3) gm/dL Hct 32.7 L 29.0 L (35.0-46.0) % Plt Count 174 177 (150-450) th/mm3 BMP 04/01/18 05:00 Sodium 143 Potassium 4.1 Chloride 108 H Carbon Dioxide 28.2 BUN 26 H Creatinine 1.01 H Calcium 8.2 L D Cardiac Enzymes 03/31/18 03/31/18 Range/Units 14:28 22:43 Total Creatine Kinase 216 H 275 H (26-192) U/L CK-MB (CK-2) 2.4 1.8 (0.5-3.6) ng/mL Troponin I 0.03 0.02 (0.02-0.05) ng/mL <Sloan Bowens S - 04/01/18 14:37> - Imaging Impressions Carotid Doppler Study 03/31/18 00:00 CONCLUSION: 1. Right Internal Carotid Artery: Mild to moderate visible plaque without significant stenosis. 2. Left Internal Carotid Artery: Mild to moderate visible plaque without significant stenosis. <Sloan Bowens S - 04/01/18 14:37> Physical Exam Vital signs: Vital Signs 04/01/18 20:00 04/02/18 00:00 04/02/18 04:00 Temperature 97.9 F 98.0 F 98.4 F Pulse Rate 88 99 H 84 Respiratory Rate 17 18 17 Blood Pressure 98/54 L 97/55 L 100/47 L Pulse Oximetry 92 L 92 L 95 04/02/18 08:00 04/02/18 12:00 04/02/18 16:00 Temperature 98.4 F 98.0 F 98.3 F Pulse Rate 98 H 74 89 Respiratory Rate 16 16 16 Blood Pressure 116/56 L 105/52 L 120/58 L Pulse Oximetry 95 94 L 94 L Intake & Output 04/01/18 04/02/18 04/02/18 18:59 06:59 18:59 Intake Total 3000 / 3000 980 / 980 110 / 110 Output Total 550 / 550 975 / 975 Balance 2450 / 2450 5 / 5 110 / 110 Weight 81 kg Intake: IV 1000 / 1000 110 / 110 NS Inj 1,000 ML @ 120 mls/hr IV 1000 / 1000 .CONT .Q8H20M [facility] Rx#:[id number] Ancef Inj 1,000 MG In NS Inj 110 / 110 100 ML @ 220 mls/hr IV.SIG Q8H [facility] Rx#:[id number] Oral 980 / 980 Anesthesia Amount 1999 Output: Urine 350 / 350 Estimated Blood Loss 250 / 250 Urine Amount (Catheter) 300 / 300 625 / 625 Indwelling Urethral Catheter 300 / 300 625 / 625 Other: Date of Last Bowel Movement 03/30/18 03/30/18 <Valentín Forman - 04/02/18 18:41> Vital Signs 03/31/18 16:55 03/31/18 20:00 03/31/18 22:15 Temperature 98.2 F 99.4 F Pulse Rate 87 90 Respiratory Rate 17 18 16 Blood Pressure 111/59 L 114/54 L Pulse Oximetry 95 94 L 04/01/18 00:00 04/01/18 01:33 04/01/18 04:00 Temperature 98.7 F 97.1 F L Pulse Rate 90 63 86 Respiratory Rate 18 18 Blood Pressure 105/52 L 117/61 Pulse Oximetry 93 L 93 L 04/01/18 08:00 04/01/18 11:50 04/01/18 12:00 Temperature 98.8 F 97.5 F L Pulse Rate 91 H 60 60 Respiratory Rate 16 17 15 Blood Pressure 125/59 L 103/60 109/51 L Pulse Oximetry 92 L 92 L 93 L 04/01/18 12:15 04/01/18 12:30 04/01/18 12:45 Temperature 97.6 F Pulse Rate 59 L 62 66 Respiratory Rate 16 15 16 Blood Pressure 101/54 L 111/55 L 105/56 L Pulse Oximetry 95 94 L 94 L 04/01/18 12:50 04/01/18 13:00 Temperature 97.2 F L Pulse Rate 60 65 Respiratory Rate 16 12 Blood Pressure 111/58 L 124/58 L Pulse Oximetry 95 95 Intake & Output 03/31/18 04/01/18 04/01/18 18:59 06:59 18:59 Intake Total 2049 3000 / 3000 Output Total 1500 / 1500 550 / 550 Balance 550 / 550 2450 / 2450 Weight 81.647 kg 81 kg Intake: IV 2049 1000 / 1000 NS Inj 1,000 ML @ 120 mls/hr IV 1999 1000 / 1000 .CONT .Q8H20M [facility] Rx#:[id number] Ancef 2 GM Premix Inj 2 gm In 50 / 50 50 ml @ 100 mls/hr IV.SIG ONCE ONE Rx#:[id number] Anesthesia Amount 1999 Output: Estimated Blood Loss 250 / 250 Urine Amount (Catheter) 1500 / 1500 300 / 300 Indwelling Urethral Catheter 1500 / 1500 300 / 300 Other: Date of Last Bowel Movement 03/30/18 03/30/18 <Sloan Bowens S - 04/01/18 14:37> - Constitutional no acute distress, average body habitus, cooperative <Sloan Bowens S - 14:37> - Routine HEENT Exam Head: Present: normocephalic, atraumatic <Sloan Bowens S 04/01/18 14:37> - Routine Respiratory Exam Present: CTA bilaterally. Absent: accessory muscle use, wheezes, crackles < Sloan Bowens S - 04/01/18 14:37> - Routine Cardiovascular Exam Present: RRR, S1, S2. Absent: murmur <Sloan Bowens S - 04/01/18 14:37> - Routine Extremities Exam Absent: edema <Sloan Bowens 04/01/18 14:37> Comments: RUE in short arm cast with shoulder sling; spontaneous movement of fingers of right hand noted. <Sloan Bowens S - 04/01/18 14:37> - Routine Neurological Exam Present: alert <Sloan Bowens S 04/01/18 14:37> somewhat confused, decreased ability to follow commands (had just gotten back to PACU and groggy from anesthesia) <Sloan Bowens S 04/01/18 14:37> - Detailed Neurological Exam: Coma Scale Eye Opening: Spontaneous <Sloan Bowens S - 04/01/18 14:37> Verbal Response: Confused <Sloan Bowens 04/01/18 14:37> Motor Response: Localizing <Sloan Bowens 04/01/18 14:37> Elida Coma Scale Total: 13 <Sloan Bowens 04/01/18 14:37> - Urinary Catheter Management Indwelling Urethral Catheter Cath placed during this visit: no <Valentín Forman 04/02/18 18:41> yes <Sloan Bowens 04/01/18 14:37> Reason for continuing: Hourly intake/output <Sloan Bowens - 04/01/18 14:37> Insertion date: 03/31/18 <Sloan Bowens 04/01/18 14:37> Insertion time: 10:00 <Sloan Bowens 04/01/18 14:37> Assessment and Plan - Assessment (1) Closed comminuted intertrochanteric fracture of right femur Code(s): S72.141A - Displaced intertrochanteric fracture of right femur, initial encounter for closed fracture Status: Acute (2) Fracture of radius, distal, right, closed Code(s): S52.501A - Unspecified fracture of the lower end of right radius, initial encounter for closed fracture Status: Acute (3) Lightheadedness Code(s): R42 - Dizziness and giddiness Status: Acute (4) Hypertension Code(s): I10 - Essential (primary) hypertension Status: Acute (5) Nutrition, metabolism, and development symptoms Code(s): R63.8 - Other symptoms and signs concerning food and fluid intake Status: Acute <Valentín Forman 04/02/18 18:41> (1) Closed comminuted intertrochanteric fracture of right femur Code(s): S72.141A - Displaced intertrochanteric fracture of right femur, initial encounter for closed fracture Status: Acute Plan: Now POD 0 s/p right hip open reduction internal fixation * [place] consulted, appreciate recs * Alendronate weekly * Pain control with [place]/morphine PRN * IS * PT/OT (2) Fracture of radius, distal, right, closed Code(s): S52.501A - Unspecified fracture of the lower end of right radius, initial encounter for closed fracture Status: Acute Plan: Now POD 0 s/p right wrist closed reduction and casting * Ortho consulted, appreciate recs * Plan as above for hip fracture (3) Lightheadedness Code(s): R42 - Dizziness and giddiness Status: Acute Plan: Improved; felt lightheaded prior to fall Troponin negative x2 * Continue telemetry postoperatively x24 hours * Consider additional w/u if symptoms persist (carotid us / echocardiogram) (4) Hypertension Code(s): I10 - Essential (primary) hypertension Status: Acute Plan: Continue home medication, metoprolol 25 twice daily (5) Nutrition, metabolism, and development symptoms Code(s): R63.8 - Other symptoms and signs concerning food and fluid intake Status: Acute Plan: Fluids: PO only Electrolytes: Replete as needed Nutrition: Regular diet DVT prophylaxis: SCDs <Sloan Bowens - 04/01/18 14:20> - Attending Attestation The exam, history, and the medical decision-making described in the above note were completed with the assistance of the resident physician. I reviewed and agree with the findings presented. I attest that I had a [id number] encounter with the patient on the same day, and personally performed and documented my assessment and findings in the medical record. <Valentín Forman - 04/02/18 18:41> <Sloan Bowens - Last Filed: 04/01/18 14:20> (1) Closed comminuted intertrochanteric fracture of right femur Qualifiers: Encounter type: initial encounter Qualified Code(s): S72.141A - Displaced intertrochanteric fracture of right femur, initial encounter for closed fracture (2) Fracture of radius, distal, right, closed Qualifiers: Encounter type: initial encounter (4) Hypertension Qualifiers: Hypertension type: essential hypertension Qualified Code(s): I10 - Essential (primary) hypertension <Valentín Forman - Last Filed: 04/02/18 18:41> (1) Closed comminuted intertrochanteric fracture of right femur Qualifiers: Encounter type: initial encounter Qualified Code(s): S72.141A - Displaced intertrochanteric fracture of right femur, initial encounter for closed fracture (2) Fracture of radius, distal, right, closed Qualifiers: Encounter type: initial encounter (4) Hypertension Qualifiers: Hypertension type: essential hypertension Qualified Code(s): I10 - Essential (primary) hypertension <Sloan Bowens S - Last Filed: 04/01/18 14:20> (1) Closed comminuted intertrochanteric fracture of right femur Qualifiers: Encounter type: initial encounter Qualified Code(s): S72.141A - Displaced intertrochanteric fracture of right femur, initial encounter for closed fracture (2) Fracture of radius, distal, right, closed Qualifiers: Encounter type: initial encounter (4) Hypertension Qualifiers: Hypertension type: essential hypertension Qualified Code(s): I10 - Essential (primary) hypertension <Valentín Forman - Last Filed: 04/02/18 18:41> (1) Closed comminuted intertrochanteric fracture of right femur Qualifiers: Encounter type: initial encounter Qualified Code(s): S72.141A - Displaced intertrochanteric fracture of right femur, initial encounter for closed fracture (2) Fracture of radius, distal, right, closed Qualifiers: Encounter type: initial encounter (4) Hypertension Qualifiers: Hypertension type: essential hypertension Qualified Code(s): I10 - Essential (primary) hypertension
--- NOTE | 2018-04-01 14:44 | XR ---
EXAM DATE: 04/01/2018 2:34 PM EDT AGE/SEX: 83 years / Female INDICATIONS: Right Hip. [place]. CLINICAL DATA: This is the patient's subsequent encounter. Patient reports that signs and symptoms h ave been present for 2 days and indicates a pain score of Nonresponsive. MEDICAL/SURGICAL HISTORY: Non-responsive. Non-responsive. COMPARISON: No prior exams available for comparison. FINDINGS: Status post ORIF of right proximal femur fracture is noted with hardware in good position. Right knee replacement is also noted. CONCLUSION: Status post ORIF of right proximal femur fracture with hardware in good position. Electronically signed by: Petros Cox MD 04/01/2018 2:43 PM EDT
--- NOTE | 2018-04-01 14:51 | XR ---
EXAM DATE: 04/01/2018 2:43 PM EDT AGE/SEX: 83 years / Female INDICATIONS: Right wrist closed reduction with casting. CLINICAL DATA: This is the patient's subsequent encounter. Patient reports that signs and symptoms h ave been present for 2 days and indicates a pain score of Nonresponsive. MEDICAL/SURGICAL HISTORY: Non-responsive. . Right hip, [place]ail. COMPARISON: C, WRIST COMPLETE RIGHT MIN 3V, 03/31/2018. . FINDINGS: Cast has been placed over the distal radial fracture which is adequately aligned. 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 CONCLUSION: Adequately aligned distal radial fracture status post casting. Electronically signed by: Petros Cox MD 04/01/2018 2:50 PM EDT
--- NOTE | 2018-04-02 00:34 | ECG ---
Date Performed: 03/31/2018 Time Performed: 17:29:19 PTAGE: 83 years EKG: Sinus rhythm WITH FREQUENT SUPRAVENTRICULAR PREMATURE COMPLEXES LOW QRS VOLTAGE IN EXTREMITY LEADS NONSPECIFIC ST & T-WAVE ABNORMALITY ABNORMAL RHYTHM ECG PREVIOUS TRACING : 03/31/2018 10.54 DOCTOR: Nikhil Arora Interpretating Date/Time 04/02/2018 00:33:54
[2018-04-02] MEDS ORDERED: ceFAZolin Inj 1,000 MG in Sodium Chlor 0.9% Inj 100 ML IV.SIG SCH (02:00)
--- NOTE | 2018-04-02 07:00 | P.PNOP ---
Subjective Interval history: Doing well, no overnight events. Reports pain well controlled. Physical Exam Vital signs: Vital Signs 04/01/18 08:00 04/01/18 11:50 04/01/18 12:00 Temperature 98.8 F 97.5 F L Pulse Rate 91 H 60 60 Respiratory Rate 16 17 15 Blood Pressure 125/59 L 103/60 109/51 L Pulse Oximetry 92 L 92 L 93 L 04/01/18 12:15 04/01/18 12:30 04/01/18 12:45 Temperature 97.6 F Pulse Rate 59 L 62 66 Respiratory Rate 16 15 16 Blood Pressure 101/54 L 111/55 L 105/56 L Pulse Oximetry 95 94 L 94 L 04/01/18 12:50 04/01/18 13:00 04/01/18 16:00 Temperature 97.2 F L 98.8 F Pulse Rate 60 65 91 H Respiratory Rate 16 12 16 Blood Pressure 111/58 L 124/58 L 125/59 L Pulse Oximetry 95 95 92 L 04/01/18 20:00 04/02/18 00:00 04/02/18 04:00 Temperature 97.9 F 98.0 F 98.4 F Pulse Rate 88 99 H 84 Respiratory Rate 17 18 17 Blood Pressure 98/54 L 97/55 L 100/47 L Pulse Oximetry 92 L 92 L 95 Intake & Output 04/01/18 04/01/18 04/02/18 06:59 18:59 06:59 Intake Total 2049 3000 / 3000 980 / 980 Output Total 1500 / 1500 550 / 550 975 / 975 Balance 550 / 550 2450 / 2450 5 / 5 Weight 81 kg 81 kg Intake: IV 2049 1000 / 1000 NS Inj 1,000 ML @ 120 mls/hr IV 1999 1000 / 1000 .CONT .Q8H20M [facility] Rx#:[id number] Ancef 2 GM Premix Inj 2 gm In 50 / 50 50 ml @ 100 mls/hr IV.SIG ONCE ONE Rx#:[id number] Oral 980 / 980 Anesthesia Amount 1999 Output: Urine 350 / 350 Estimated Blood Loss 250 / 250 Urine Amount (Catheter) 1500 / 1500 300 / 300 625 / 625 Indwelling Urethral Catheter 1500 / 1500 300 / 300 625 / 625 Other: Date of Last Bowel Movement 03/30/18 03/30/18 03/30/18 Narrative: Right lower extremity with scant drainage on middle dressing, 2+DP, +EHL/FHL/PF/ DF, SILT toes Right upper extremity in cast with some swelling noted to fingers, good capillary refill, able to wiggle fingers, SILT - Urinary Catheter Management Indwelling Urethral Catheter Cath placed during this visit: yes Reason for continuing: Hourly intake/output Insertion date: 03/31/18 Insertion time: 10:00 Results - Labs CBC & Chem 7: 04/01/18 10:34 04/01/18 05:00 Laboratory Results - last 24 hr 04/01/18 04/01/18 10:34 10:59 WBC 7.8 RBC 3.35 L Hgb 9.7 L Hct 29.0 L MCV 86.6 MCH 28.9 MCHC 33.3 RDW 14.4 Plt Count 177 MPV 8.2 Neut % (Auto) 70.1 H Lymph % (Auto) 12.5 [place] % (Auto) 16.2 H Eos % (Auto) 0.7 Baso % (Auto) 0.5 Neut # (Auto) 5.5 Lymph # (Auto) 1.0 [place] # (Auto) 1.3 H Eos # (Auto) 0.1 Baso # (Auto) 0.0 WBC Differential . Differential Comment Auto diff final MTS Gel Crossmatch See Detail - Imaging Impressions Hip X-Ray 04/01/18 00:00 CONCLUSION: Status post ORIF of right proximal femur fracture with hardware in good position. Wrist X-Ray 04/01/18 00:00 CONCLUSION: Adequately aligned distal radial fracture status post casting. Assessment and Plan - Ortho Post Op Day # 1 - Problem List (1) Closed comminuted intertrochanteric fracture of right femur Code(s): S72.141A - Displaced intertrochanteric fracture of right femur, initial encounter for closed fracture Status: Acute Qualifiers: Encounter type: initial encounter Qualified Code(s): S72.141A - Displaced intertrochanteric fracture of right femur, initial encounter for closed fracture (2) Fracture of radius, distal, right, closed Code(s): S52.501A - Unspecified fracture of the lower end of right radius, initial encounter for closed fracture Status: Acute Qualifiers: Encounter type: initial encounter - Assessment and Plan 83 year old female POD 1 s/p IMN right intertrochanteric femur fracture and closed reduction/casting right distal radius fracture Plan: PWB 50% RLE NWB R wrist, ok to weight bear through elbow PT for mobilization Follow up CBC (pending) Lovenox VTE ppx Ice/elevation RUE
[2018-04-02 07:26] LABS: Baso % (Auto) 0.2 % (0.0-2.0); Eos % (Auto) 0.1 % (0.0-4.0); Hematocrit 24.3 % (35.0-46.0); Hemoglobin 8.4 gm/dL (11.6-15.3); Lymph # (Auto) 0.8 th/mm3 (1.0-4.8); Lymph % (Auto) 8.2 % (9.0-44.0); Mean Corpuscular HGB Conc 34.4 % (32.0-36.0); Mean Corpuscular Hemoglobin 29.5 pg (27.0-34.0); Mean Corpuscular Volume 85.7 fL (80.0-100.0); Mean Platelet Volume 8.3 fL (7.0-11.0); Mono # (Auto) 1.3 th/mm3 (0.0-0.9); Mono % (Auto) 13.2 % (0.0-8.0); Neut # (Auto) 7.8 th/mm3 (1.8-7.7); Neut % (Auto) 78.3 % (16.0-70.0); Platelet Count 136 th/mm3 (150-450); Red Blood Count 2.84 mil/mm3 (4.00-5.30); Red Cell Distribution Width 14.3 % (11.6-17.2); White Blood Count 9.9 th/mm3 (4.0-11.0)
[2018-04-02 07:49] LABS: Calcium 7.7 mg/dL (8.5-10.1); Potassium 4.2 meq/L (3.5-5.1)
[2018-04-02 08:17] LABS: CKMB Percent 1.1 % (0.0-4.0); Creatine Kinase MB 11.9 ng/mL (0.5-3.6)
[2018-04-02] MEDS: Metoprolol Tartrate 25 MG Tablet PO SCH ×2 (09:14→20:48)
[2018-04-02] MEDS: Enoxaparin Inj 40 MG/0.4 ML Syringe SQ SCH (09:30)
--- NOTE | 2018-04-02 10:09 | P.PNFP ---
Subjective Interval history: No acute events overnight. s/p postop day 1 IMN right intertrochanteric femur fracture and closed reduction /casting right distal radius fracture Patient is currently doing well. Niece at bedside. Patient was able to tolerate dinner and breakfast this morning. Patient is currently passing gas, no bowel movement yet. Discussed with patient about either receiving rehab here in [facility] or going back to [place]. Denies chest pain, fevers, shortness of breath, and abdominal pain. Results - Labs Result diagrams: 04/02/18 06:29 04/02/18 06:29 Abnormal lab results 04/01/18 04/01/18 04/02/18 Range/Units 10:34 10:59 06:29 RBC 3.35 L (4.00-5.30) mil/mm3 Hgb 9.7 L (11.6-15.3) gm/dL Hct 29.0 L (35.0-46.0) % Plt Count (150-450) th/mm3 Neut % (Auto) 70.1 H (16.0-70.0) % Lymph % (Auto) (9.0-44.0) % [place] % (Auto) 16.2 H (0.0-8.0) % Neut # (Auto) (1.8-7.7) th/mm3 Lymph # (Auto) (1.0-4.8) th/mm3 [place] # (Auto) 1.3 H (0.0-0.9) th/mm3 Chloride 109 H (98-107) meq/L BUN 25 H (7-18) mg/dL Estimated GFR 57 L (>89) mL/min Random Glucose 136 H (74-106) mg/dL Calcium 7.7 L (8.5-10.1) mg/dL Total Creatine Kinase 1039 H (26-192) U/L CK-MB (CK-2) 11.9 H (0.5-3.6) ng/mL MTS Gel Crossmatch See Detail 04/02/18 Range/Units 06:29 RBC 2.84 L (4.00-5.30) mil/mm3 Hgb 8.4 L (11.6-15.3) gm/dL Hct 24.3 L (35.0-46.0) % Plt Count 136 L (150-450) th/mm3 Neut % (Auto) 78.3 H (16.0-70.0) % Lymph % (Auto) 8.2 L (9.0-44.0) % [place] % (Auto) 13.2 H (0.0-8.0) % Neut # (Auto) 7.8 H (1.8-7.7) th/mm3 Lymph # (Auto) 0.8 L (1.0-4.8) th/mm3 [place] # (Auto) 1.3 H (0.0-0.9) th/mm3 Chloride (98-107) meq/L BUN (7-18) mg/dL Estimated GFR (>89) mL/min Random Glucose (74-106) mg/dL Calcium (8.5-10.1) mg/dL Total Creatine Kinase (26-192) U/L CK-MB (CK-2) (0.5-3.6) ng/mL MTS Gel Crossmatch Short CBC 04/01/18 04/02/18 Range/Units 10:34 06:29 WBC 7.8 9.9 (4.0-11.0) th/mm3 Hgb 9.7 L 8.4 L (11.6-15.3) gm/dL Hct 29.0 L 24.3 L (35.0-46.0) % Plt Count 177 136 L (150-450) th/mm3 BMP 04/02/18 06:29 Sodium 142 Potassium 4.2 Chloride 109 H Carbon Dioxide 27.0 BUN 25 H Creatinine 0.94 Calcium 7.7 L Cardiac Enzymes 04/02/18 Range/Units 06:29 Total Creatine Kinase 1039 H (26-192) U/L CK-MB (CK-2) 11.9 H (0.5-3.6) ng/mL - Imaging Impressions Hip X-Ray 04/01/18 00:00 CONCLUSION: Status post ORIF of right proximal femur fracture with hardware in good position. Wrist X-Ray 04/01/18 00:00 CONCLUSION: Adequately aligned distal radial fracture status post casting. Physical Exam Vital signs: Vital Signs 04/01/18 11:50 04/01/18 12:00 04/01/18 12:15 Temperature 97.5 F L Pulse Rate 60 60 59 L Respiratory Rate 17 15 16 Blood Pressure 103/60 109/51 L 101/54 L Pulse Oximetry 92 L 93 L 95 04/01/18 12:30 04/01/18 12:45 04/01/18 12:50 Temperature 97.6 F Pulse Rate 62 66 60 Respiratory Rate 15 16 16 Blood Pressure 111/55 L 105/56 L 111/58 L Pulse Oximetry 94 L 94 L 95 04/01/18 13:00 04/01/18 16:00 04/01/18 20:00 Temperature 97.2 F L 98.8 F 97.9 F Pulse Rate 65 91 H 88 Respiratory Rate 12 16 17 Blood Pressure 124/58 L 125/59 L 98/54 L Pulse Oximetry 95 92 L 92 L 04/02/18 00:00 04/02/18 04:00 04/02/18 08:00 Temperature 98.0 F 98.4 F 98.4 F Pulse Rate 99 H 84 98 H Respiratory Rate 18 17 16 Blood Pressure 97/55 L 100/47 L 116/56 L Pulse Oximetry 92 L 95 95 Intake & Output 04/01/18 04/02/18 04/02/18 18:59 06:59 18:59 Intake Total 3000 / 3000 980 / 980 110 / 110 Output Total 550 / 550 975 / 975 Balance 2450 / 2450 5 / 5 110 / 110 Weight 81 kg Intake: IV 1000 / 1000 110 / 110 NS Inj 1,000 ML @ 120 mls/hr IV 1000 / 1000 .CONT .Q8H20M [facility] Rx#:[id number] Ancef Inj 1,000 MG In NS Inj 110 / 110 100 ML @ 220 mls/hr IV.SIG Q8H [facility] Rx#:[id number] Oral 980 / 980 Anesthesia Amount 1999 / 1999 Output: Urine 350 / 350 Estimated Blood Loss 250 / 250 Urine Amount (Catheter) 300 / 300 625 / 625 Indwelling Urethral Catheter 300 / 300 625 / 625 Other: Date of Last Bowel Movement 03/30/18 03/30/18 Narrative: General: No acute distress Cardio: Regular rate and rhythm Respiratory: Clear to auscultation bilaterally, no wheezes or crackles Abdomen: Soft nontender nondistended no rebound or guarding Extremity: Right lower extremity- dressing on , able to wiggle toes, 2+ DP right upper extremity in cast, able to wiggle fingers, good capillary refill - Urinary Catheter Management Indwelling Urethral Catheter Cath placed during this visit: yes Reason for continuing: Hourly intake/output Insertion date: 03/31/18 Insertion time: 10:00 Assessment and Plan - Assessment (1) Closed comminuted intertrochanteric fracture of right femur Code(s): S72.141A - Displaced intertrochanteric fracture of right femur, initial encounter for closed fracture Status: Acute Plan: Now POD 1 s/p right hip open reduction internal fixation * [place] consulted, appreciate recs * Alendronate weekly * Lovenox VTE ppx * Pain control with [place]/morphine PRN * IS * PT/OT (2) Fracture of radius, distal, right, closed Code(s): S52.501A - Unspecified fracture of the lower end of right radius, initial encounter for closed fracture Status: Acute Plan: Now POD 1 s/p right wrist closed reduction and casting * Ortho consulted, appreciate recs * Plan as above for hip fracture (3) Lightheadedness Code(s): R42 - Dizziness and giddiness Status: Acute Plan: Improved; felt lightheaded prior to fall Troponin negative x2 * Continue telemetry postoperatively x24 hours * Echo pending * consider US carotids (4) Hypertension Code(s): I10 - Essential (primary) hypertension Status: Acute Plan: Continue home medication, metoprolol 25 twice daily (5) Nutrition, metabolism, and development symptoms Code(s): R63.8 - Other symptoms and signs concerning food and fluid intake Status: Acute Plan: Fluids: PO only Electrolytes: Replete as needed Nutrition: Regular diet DVT prophylaxis: SCDs, Lovenox Dispo: Patient will likely need to be on anticoagulant when discharged, patient has not yet determine where she wants to receive rehab. Patient does have a orthopedic doctor back in [place]. (1) Closed comminuted intertrochanteric fracture of right femur Qualifiers: Encounter type: initial encounter Qualified Code(s): S72.141A - Displaced intertrochanteric fracture of right femur, initial encounter for closed fracture (2) Fracture of radius, distal, right, closed Qualifiers: Encounter type: initial encounter (4) Hypertension Qualifiers: Hypertension type: essential hypertension Qualified Code(s): I10 - Essential (primary) hypertension
--- NOTE | 2018-04-02 11:16 | ECHRPT ---
Indication: Syncope and collapse CONCLUSIONS The left ventricular systolic function is low normal with an estimated ejection fraction in the rang e of 50- 55%. Wall thickness is normal. Normal left ventricular size. Mild aortic valve regurgitation. BP: / HR: Rhythm: Other MEASUREMENTS (Male / Female) Normal Values Technical Quality:Fair 2D ECHO LV Diastolic Diameter PLAX 4.6 cm 4.2 - 5.9 / 3.9 - 5.3 cm LV Systolic Diameter PLAX 3.7 cm IVS Diastolic Thickness 1.0 cm 0.6 - 1.0 / 0.6 - 0.9 cm LVPW Diastolic Thickness 1.0 cm 0.6 - 1.0 / 0.6 - 0.9 cm LV Relative Wall Thickness 0.4 LVOT Diameter 2.0 cm DOPPLER AV Peak Velocity 148.0 cm/s AV Peak Gradient 8.8 mmHg AI Peak Velocity 336.0 cm/s AI Peak Gradient 45.2 mmHg AI Pressure Half Time 771.3 ms LVOT Peak Velocity 117.0 cm/s LVOT Peak Gradient 5.5 mmHg AV Area Cont Eq pk 2.5 cm FINDINGS LEFT VENTRICLE The left ventricular systolic function is low normal with an estimated ejection fraction in the rang e of 50- 55%. Wall thickness is normal. Normal left ventricular size. RIGHT VENTRICLE Normal right ventricular size and systolic function. LEFT ATRIUM The left atrial size is normal. RIGHT ATRIUM The right atrial size is normal. ATRIAL SEPTUM Normal atrial septal thickness without atrial level shunting by limited color doppler interrogation. AORTA The aortic root and proximal ascending aorta are normal in size on limited imaging. MITRAL VALVE Structurally normal mitral valve. No mitral valve stenosis or regurgitation. AORTIC VALVE Mild aortic valve regurgitation. TRICUSPID VALVE Structurally normal tricuspid valve. No tricuspid valve stenosis or regurgitation. PULMONARY VALVE The pulmonary valve is not well visualized. VESSELS The inferior vena cava is normal in size. PERICARDIUM No pericardial effusion. Mony Richey MD, FACC (Electronically Signed) Final Date:02 April 2018 11:15
[2018-04-02 15:26] LABS: Hematocrit 24.7 % (35.0-46.0); Hemoglobin 8.2 gm/dL (11.6-15.3)
[2018-04-03 05:36] LABS: Hematocrit 21.4 % (35.0-46.0); Hemoglobin 7.4 gm/dL (11.6-15.3); Mean Corpuscular HGB Conc 34.4 % (32.0-36.0); Mean Corpuscular Hemoglobin 29.2 pg (27.0-34.0); Mean Corpuscular Volume 84.8 fL (80.0-100.0); Platelet Count 148 th/mm3 (150-450); Red Blood Count 2.53 mil/mm3 (4.00-5.30); Red Cell Distribution Width 14.6 % (11.6-17.2); White Blood Count 8.1 th/mm3 (4.0-11.0)
[2018-04-03 05:58] LABS: Calcium 8.4 mg/dL (8.5-10.1)
[2018-04-03] MEDS: Metoprolol Tartrate 25 MG Tablet PO SCH (09:08)
[2018-04-03] MEDS: Enoxaparin Inj 40 MG/0.4 ML Syringe SQ SCH (09:08)
--- NOTE | 2018-04-03 10:43 | P.PNFP ---
Subjective Interval history: Patient was seen at bedside this morning. There were no acute events overnight. Patient reports that her pain is currently well controlled and feels okay. She reports that she has not had a bowel movement since before admission. She also denies any rectal bleeding or previous dark stools. A lengthy conversation was had with granddaughter, daughter, and son-in-law about patient's rehabilitation plan. Patient desires to speak with case management regarding completing rehabilitation here at [facility] versus home in [place]. Patient denies any subjective fevers, chills, shortness of breath, chest pain, nausea, or vomiting. All questions were answered to the patient's satisfaction. <Hai Oviedo - 04/03/18 10:43> Results - Labs Result diagrams: 04/04/18 05:07 04/04/18 05:07 <Valentín Forman - 04/07/18 13:54> Abnormal lab results 04/02/18 04/03/18 04/03/18 Range/Units 14:46 04:23 04:23 RBC 2.53 L (4.00-5.30) mil/mm3 Hgb 8.2 L 7.4 L (11.6-15.3) gm/dL Hct 24.7 L 21.4 L (35.0-46.0) % Plt Count 148 L (150-450) th/mm3 Chloride 108 H (98-107) meq/L BUN 22 H (7-18) mg/dL Estimated GFR 76 L (>89) mL/min Random Glucose 109 H (74-106) mg/dL Calcium 8.4 L (8.5-10.1) mg/dL Short CBC 04/02/18 04/03/18 Range/Units 14:46 04:23 WBC 8.1 (4.0-11.0) th/mm3 Hgb 8.2 L 7.4 L (11.6-15.3) gm/dL Hct 24.7 L 21.4 L (35.0-46.0) % Plt Count 148 L (150-450) th/mm3 [facility] 04/03/18 04:23 Sodium 141 Potassium 4.0 Chloride 108 H Carbon Dioxide 28.0 BUN 22 H Creatinine 0.73 Calcium 8.4 L <Hai Oviedo - 04/03/18 10:43> Physical Exam Vital signs: Vital Signs 10/28/18 12:00 04/02/18 16:00 04/02/18 20:00 Temperature 98.0 F 98.3 F 98.8 F Pulse Rate 74 89 87 Respiratory Rate 16 16 20 Blood Pressure 105/52 L 120/58 L 115/60 Pulse Oximetry 94 L 94 L 92 L 04/03/18 00:00 04/03/18 04:00 04/03/18 08:00 Temperature 98.1 F 97.8 F 97.7 F Pulse Rate 80 88 97 H Respiratory Rate 18 20 18 Blood Pressure 114/54 L 122/66 121/52 L Pulse Oximetry 93 L 95 93 L Intake & Output 04/02/18 04/03/18 04/03/18 18:59 06:59 18:59 Intake Total 590 / 590 240 / 240 Output Total 700 / 700 Balance -110 / -110 240 / 240 Weight 88.4 kg Intake: IV 110 / 110 Ancef Inj 1,000 MG In NS Inj 110 / 110 100 ML @ 220 mls/hr IV.SIG Q8H [facility] Rx#:[id number] Oral 480 / 480 240 / 240 Output: Urine 700 / 700 Other: Date of Last Bowel Movement 03/30/18 03/30/18 <Hia Oviedo - 04/03/18 10:43> Narrative: GENERAL: Well-nourished, well-developed patient. No acute distress. SKIN: Warm and dry. No rash. EYES: No scleral icterus. No injection or drainage. PERRLA. EOMI. HENT: Normocephalic. Atraumatic. MMM. NECK: Supple, trachea midline. No JVD or lymphadenopathy. CARDIOVASCULAR: Irregularly irregular heart rate. RESPIRATORY: Breath sounds equal bilaterally. No accessory muscle use. CTAB. GASTROINTESTINAL: Abdomen soft, non-tender, nondistended. BS WNL. MUSCULOSKELETAL: Patient has significant edema at all MCPs on right hand with some slight ecchymosis overlying. Per patient and family the hand has significantly bettered since before. Patient also very sore over the right hip. Patient's range of motion is limited by pain. Both legs of equal length with good capillary refill and sensation in lower and upper extremities. NEURO/PSYCH: Afocal. Awake, alert, and oriented x3. <Hai Oviedo 04/03/18 10:59> - Urinary Catheter Management Indwelling Urethral Catheter Cath placed during this visit: no <DasiaValentín 04/07/18 13:54> yes <OviedoHai Oliverio 04/03/18 10:59> Reason for continuing: Not indwelling catheter <Hai Oviedo Oliverio Saez 04/03/18 10:43 > Insertion date: 03/31/18 <Hai Oviedo 04/03/18 10:43> Insertion time: 10:00 <Oviedo,Jose Oliverio Saez 04/03/18 10:43> Straight Cath placed during this visit: no <Valentín Forman 04/07/18 13:54> yes, but has since been removed by the nurse <Hai Oviedo 04/03/18 10:59> Reason for continuing: Not indwelling catheter <OviedoHai 04/03/18 10:43 > Insertion date: 04/03/18 <Hai Oviedo 04/03/18 10:43> Insertion time: 02:30 <OviedoHia Oliverio Saez 04/03/18 10:43> Removal date: 04/03/18 <OviedoHai Oliverio 04/03/18 10:43> Removal time: 02:35 <Hai Oviedo 04/03/18 10:43> Assessment and Plan - Assessment (1) Closed comminuted intertrochanteric fracture of right femur Code(s): S72.141A - Displaced intertrochanteric fracture of right femur, initial encounter for closed fracture Status: Acute (2) Fracture of radius, distal, right, closed Code(s): S52.501A - Unspecified fracture of the lower end of right radius, initial encounter for closed fracture Status: Acute (3) Normocytic anemia Code(s): D64.9 - Anemia, unspecified Status: Acute (4) Lightheadedness Code(s): R42 - Dizziness and giddiness Status: Acute (5) Hypertension Code(s): I10 - Essential (primary) hypertension Status: Chronic (6) Nutrition, metabolism, and development symptoms Code(s): R63.8 - Other symptoms and signs concerning food and fluid intake Status: Acute <DasiaValentín 04/07/18 13:54> (1) Closed comminuted intertrochanteric fracture of right femur Code(s): S72.141A - Displaced intertrochanteric fracture of right femur, initial encounter for closed fracture Status: Acute Plan: Now POD#2 s/p right hip open reduction internal fixation * [place] consulted, appreciate recs * Alendronate weekly * Lovenox VTE ppx * Pain control with [place]/morphine PRN * PT/OT (2) Fracture of radius, distal, right, closed Code(s): S52.501A - Unspecified fracture of the lower end of right radius, initial encounter for closed fracture Status: Acute Plan: Now POD#2 s/p right wrist closed reduction and casting * Ortho consulted, appreciate recs * Plan as above for hip fracture (3) Normocytic anemia Code(s): D64.9 - Anemia, unspecified Status: Acute Plan: Patient had continuing lower good hemoglobin since admission. Patient was admitted with a hemoglobin of 13.8 and has gradually decreased daily to last hemoglobin of 7.4. Patient has no obvious hematoma or source of bleeding. She denies any bloody or dark stools. -Follow-up with p.m. H&H -Follow-up with Hemoccult -Transfuse below 7 (4) Lightheadedness Code(s): R42 - Dizziness and giddiness Status: Acute Plan: Improved; felt lightheaded prior to fall. Troponin negative x2 * Continue telemetry postoperatively x24 hours * Echo: EF 50-55% with some mitral regurgitation * Follow up with US carotids (5) Hypertension Code(s): I10 - Essential (primary) hypertension Status: Acute Plan: Continue home medication, metoprolol 25 twice daily (6) Nutrition, metabolism, and development symptoms Code(s): R63.8 - Other symptoms and signs concerning food and fluid intake Status: Acute Plan: Fluids: PO only Electrolytes: Replete as needed Nutrition: Regular diet DVT prophylaxis: SCDs, Lovenox Dispo: Patient will likely need to be on anticoagulant when discharged, patient has not yet determine where she wants to receive rehab, most likely at [facility]. Patient does have a orthopedic doctor back in [place]. <Hai Oviedo - 04/03/18 10:43> - Attending Attestation The exam, history, and the medical decision-making described in the above note were completed with the assistance of the resident physician. I reviewed and agree with the findings presented. I attest that I had a [id number] encounter with the patient on the same day, and personally performed and documented my assessment and findings in the medical record. <Valentín Forman - 04/07/18 13:54> <Hai Oviedo O - Last Filed: 04/03/18 10:43> (1) Closed comminuted intertrochanteric fracture of right femur Qualifiers: Encounter type: initial encounter Qualified Code(s): S72.141A - Displaced intertrochanteric fracture of right femur, initial encounter for closed fracture (2) Fracture of radius, distal, right, closed Qualifiers: Encounter type: initial encounter (5) Hypertension Qualifiers: Hypertension type: essential hypertension Qualified Code(s): I10 - Essential (primary) hypertension <Valentín Forman - Last Filed: 04/07/18 13:54> (1) Closed comminuted intertrochanteric fracture of right femur Qualifiers: Encounter type: subsequent encounter Fracture healing: with routine healing Qualified Code(s): S72.141D - Displaced intertrochanteric fracture of right femur, subsequent encounter for closed fracture with routine healing (2) Fracture of radius, distal, right, closed Qualifiers: Encounter type: subsequent encounter Fracture morphology: other fracture Fracture healing: with routine healing Qualified Code(s): S52.591D - Other fractures of lower end of right radius, subsequent encounter for closed fracture with routine healing (5) Hypertension Qualifiers: Hypertension type: essential hypertension Qualified Code(s): I10 - Essential (primary) hypertension <Hai Oviedo - Last Filed: 04/03/18 10:43> (1) Closed comminuted intertrochanteric fracture of right femur Qualifiers: Encounter type: initial encounter Qualified Code(s): S72.141A - Displaced intertrochanteric fracture of right femur, initial encounter for closed fracture (2) Fracture of radius, distal, right, closed Qualifiers: Encounter type: initial encounter (5) Hypertension Qualifiers: Hypertension type: essential hypertension Qualified Code(s): I10 - Essential (primary) hypertension <Valentín Forman - Last Filed: 04/07/18 13:54> (1) Closed comminuted intertrochanteric fracture of right femur Qualifiers: Encounter type: subsequent encounter Fracture healing: with routine healing Qualified Code(s): S72.141D - Displaced intertrochanteric fracture of right femur, subsequent encounter for closed fracture with routine healing (2) Fracture of radius, distal, right, closed Qualifiers: Encounter type: subsequent encounter Fracture morphology: other fracture Fracture healing: with routine healing Qualified Code(s): S52.591D - Other fractures of lower end of right radius, subsequent encounter for closed fracture with routine healing (5) Hypertension Qualifiers: Hypertension type: essential hypertension Qualified Code(s): I10 - Essential (primary) hypertension
[2018-04-03] MEDS ORDERED: Senna/Docusate Sodium 8.6/50 MG Tablet PO ONE (11:15)
[2018-04-03 13:58] LABS: Hematocrit 24.7 % (35.0-46.0); Hemoglobin 8.5 gm/dL (11.6-15.3)
--- NOTE | 2018-04-03 14:48 | ECG ---
Date Performed: 03/31/2018 Time Performed: 10:54:28 PTAGE: 83 years EKG: Sinus rhythm WITH FREQUENT SUPRAVENTRICULAR PREMATURE COMPLEXES NONSPECIFIC ST & T-WAVE ABNORMALITY ABNORMAL RHYT HM ECG NO PREVIOUS TRACING DOCTOR: Jonathan Francis Interpretating Date/Time 04/03/2018 14:43:50
--- NOTE | 2018-04-03 17:40 | P.PNOP ---
Subjective Interval history: Patient states pain is "okay." No significant events overnight. Hemoglobin has been trending down. Family deciding on whether or not to go to [place] for rehab prior to going home to [place]. Physical Exam Vital signs: Vital Signs 04/02/18 20:00 04/03/18 00:00 04/03/18 04:00 Temperature 98.8 F 98.1 F 97.8 F Pulse Rate 87 80 88 Respiratory Rate 20 18 20 Blood Pressure 115/60 114/54 L 122/66 Pulse Oximetry 92 L 93 L 95 04/03/18 08:00 04/03/18 12:00 Temperature 97.7 F 98.8 F Pulse Rate 97 H 75 Respiratory Rate 18 17 Blood Pressure 121/52 L 103/51 L Pulse Oximetry 93 L 92 L Intake & Output 04/02/18 04/03/18 04/03/18 18:59 06:59 18:59 Intake Total 590 / 590 240 / 240 Output Total 700 / 700 Balance -110 / -110 240 / 240 Weight 88.4 kg Intake: IV 110 / 110 Ancef Inj 1,000 MG In NS Inj 110 / 110 100 ML @ 220 mls/hr IV.SIG Q8H DIETER Rx#:[id number] Oral 480 / 480 240 / 240 Output: Urine 700 / 700 Other: Date of Last Bowel Movement 03/30/18 03/30/18 Narrative: Right lower extremity dressing with a few drops of blood on bandage, not saturated. No hematoma present. 2+DP, motor and sensory intact. Right upper extremity cast in place, mild swelling still noted to fingers. Good capillary refill. Motor and sensory intact. - Urinary Catheter Management Indwelling Urethral Catheter Cath placed during this visit: yes Reason for continuing: Not indwelling catheter Insertion date: 03/31/18 Insertion time: 10:00 Straight Cath placed during this visit: yes, but has since been removed by the nurse Reason for continuing: Not indwelling catheter Insertion date: 04/03/18 Insertion time: 02:30 Removal date: 04/03/18 Removal time: 02:35 Results - Labs CBC & Chem 7: 04/03/18 13:37 04/03/18 04:23 Laboratory Results - last 24 hr 04/03/18 04/03/18 04/03/18 04:23 04:23 13:37 WBC 8.1 RBC 2.53 L Hgb 7.4 L 8.5 L Hct 21.4 L 24.7 L MCV 84.8 MCH 29.2 MCHC 34.4 RDW 14.6 Plt Count 148 L MPV 8.0 Sodium 141 Potassium 4.0 Chloride 108 H Carbon Dioxide 28.0 Anion Gap 5 BUN 22 H Creatinine 0.73 Estimated GFR 76 L Random Glucose 109 H Calcium 8.4 L Assessment and Plan - Ortho Post Op Day # 2 - Problem List (1) Closed comminuted intertrochanteric fracture of right femur Code(s): S72.141A - Displaced intertrochanteric fracture of right femur, initial encounter for closed fracture Status: Acute Qualifiers: Encounter type: initial encounter Qualified Code(s): S72.141A - Displaced intertrochanteric fracture of right femur, initial encounter for closed fracture (2) Fracture of radius, distal, right, closed Code(s): S52.501A - Unspecified fracture of the lower end of right radius, initial encounter for closed fracture Status: Acute Qualifiers: Encounter type: initial encounter - Assessment and Plan 83 year old female POD 2 s/p IMN right intertrochanteric femur fracture and closed reduction/casting right distal radius fracture Plan: PWB 50% RLE NWB R wrist, ok to weight bear through elbow PT for mobilization Follow H&H Lovenox VTE ppx Ice/elevation RUE
[2018-04-04 05:37] LABS: Baso # (Auto) 0.1 th/mm3 (0.0-0.2); Baso % (Auto) 0.7 % (0.0-2.0); Eos # (Auto) 0.2 th/mm3 (0.0-0.4); Eos % (Auto) 2.2 % (0.0-4.0); Hematocrit 23.9 % (35.0-46.0); Lymph # (Auto) 1.7 th/mm3 (1.0-4.8); Mean Corpuscular HGB Conc 33.7 % (32.0-36.0); Mean Corpuscular Hemoglobin 29.3 pg (27.0-34.0); Mean Corpuscular Volume 86.9 fL (80.0-100.0); Mean Platelet Volume 7.5 fL (7.0-11.0); Mono # (Auto) 0.9 th/mm3 (0.0-0.9); Mono % (Auto) 11.3 % (0.0-8.0); Neut # (Auto) 5.2 th/mm3 (1.8-7.7); Neut % (Auto) 64.8 % (16.0-70.0); Platelet Count 212 th/mm3 (150-450); Red Blood Count 2.75 mil/mm3 (4.00-5.30); Red Cell Distribution Width 14.7 % (11.6-17.2)
[2018-04-04 05:56] LABS: Alanine Aminotransferase 24 U/L (10-53); Albumin 2.4 g/dL (3.4-5.0); Anion Gap 5 meq/L (5-15); Aspartate Aminotransferase 49 U/L (15-37); Blood Urea Nitrogen 21 mg/dL (7-18); Calcium 8.6 mg/dL (8.5-10.1); Carbon Dioxide 28.7 meq/L (21.0-32.0); Chloride 108 meq/L (98-107); Glomerular Filtration Rate 78 mL/min (>89); Glucose,Random 108 mg/dL (74-106); Potassium 3.9 meq/L (3.5-5.1); Sodium 142 meq/L (136-145)
[2018-04-04 05:58] LABS: Alkaline Phosphatase 56 U/L (45-117); Total Protein 5.9 g/dL (6.4-8.2)
[2018-04-04] MEDS: Metoprolol Tartrate 25 MG Tablet PO SCH ×2 (07:05→09:58)
[2018-04-04] MEDS: Enoxaparin Inj 40 MG/0.4 ML Syringe SQ SCH (09:57)
[2018-04-04] MEDS ORDERED: Bisacodyl 10 MG Supp RECTAL PRN (10:31)
--- NOTE | 2018-04-04 10:37 | P.PNFP ---
Subjective Interval history: No acute events overnight. Patient doing well this morning. Daughter at bedside. Patient states that her pain is well controlled. Passing gas. Has not had a bowel movement yet. Family has agreed that patient can go to [place] rehab. Denies fevers, chest pain, shortness of breath, nausea vomiting, and abdominal pain. Cardiac telemetry demonstrated ST depressions in several leads, EKG consistent with ST depressions, troponin negative.Patient may benefit from nuclear stress test as outpatient. <Donna Guzman T - 04/04/18 13:58> Results - Labs Result diagrams: 04/04/18 05:07 04/04/18 05:07 <Benjamin Calero L - 04/04/18 17:49> Abnormal lab results 04/01/18 04/04/18 04/04/18 Range/Units 10:59 05:07 05:07 RBC 2.75 L (4.00-5.30) mil/mm3 Hgb 8.0 L (11.6-15.3) gm/dL Hct 23.9 L (35.0-46.0) % Casey % (Auto) 11.3 H (0.0-8.0) % Chloride 108 H (98-107) meq/L BUN 21 H (7-18) mg/dL Estimated GFR 78 L (>89) mL/min Random Glucose 108 H (74-106) mg/dL Total Bilirubin 1.2 H (0.2-1.0) mg/dL AST 49 H (15-37) U/L Troponin I (0.02-0.05) ng/mL Total Protein 5.9 L D (6.4-8.2) g/dL Albumin 2.4 L (3.4-5.0) g/dL MTS Gel Crossmatch See Detail 04/04/18 Range/Units 12:06 RBC (4.00-5.30) mil/mm3 Hgb (11.6-15.3) gm/dL Hct (35.0-46.0) % Casey % (Auto) (0.0-8.0) % Chloride (98-107) meq/L BUN (7-18) mg/dL Estimated GFR (>89) mL/min Random Glucose (74-106) mg/dL Total Bilirubin (0.2-1.0) mg/dL AST (15-37) U/L Troponin I Less than 0.02 L (0.02-0.05) ng/mL Total Protein (6.4-8.2) g/dL Albumin (3.4-5.0) g/dL MTS Gel Crossmatch Short CBC 04/04/18 Range/Units 05:07 WBC 8.0 (4.0-11.0) th/mm3 Hgb 8.0 L (11.6-15.3) gm/dL Hct 23.9 L (35.0-46.0) % Plt Count 212 D (150-450) th/mm3 BMP 04/04/18 05:07 Sodium 142 Potassium 3.9 Chloride 108 H Carbon Dioxide 28.7 BUN 21 H Creatinine 0.71 Calcium 8.6 Cardiac Enzymes 04/04/18 Range/Units 12:06 Troponin I Less than 0.02 L (0.02-0.05) ng/mL Liver Function 04/04/18 Range/Units 05:07 Total Bilirubin 1.2 H (0.2-1.0) mg/dL AST 49 H (15-37) U/L ALT 24 (10-53) U/L Alkaline Phosphatase 56 (45-117) U/L Albumin 2.4 L (3.4-5.0) g/dL <Benjamin Calero L - 04/04/18 17:49> Abnormal lab results 04/01/18 04/03/18 04/04/18 Range/Units 10:59 13:37 05:07 RBC 2.75 L (4.00-5.30) mil/mm3 Hgb 8.5 L 8.0 L (11.6-15.3) gm/dL Hct 24.7 L 23.9 L (35.0-46.0) % Casey % (Auto) 11.3 H (0.0-8.0) % Chloride (98-107) meq/L BUN (7-18) mg/dL Estimated GFR (>89) mL/min Random Glucose (74-106) mg/dL Total Bilirubin (0.2-1.0) mg/dL AST (15-37) U/L Total Protein (6.4-8.2) g/dL Albumin (3.4-5.0) g/dL MTS Gel Crossmatch See Detail 04/04/18 Range/Units 05:07 RBC (4.00-5.30) mil/mm3 Hgb (11.6-15.3) gm/dL Hct (35.0-46.0) % Casey % (Auto) (0.0-8.0) % Chloride 108 H (98-107) meq/L BUN 21 H (7-18) mg/dL Estimated GFR 78 L (>89) mL/min Random Glucose 108 H (74-106) mg/dL Total Bilirubin 1.2 H (0.2-1.0) mg/dL AST 49 H (15-37) U/L Total Protein 5.9 L D (6.4-8.2) g/dL Albumin 2.4 L (3.4-5.0) g/dL MTS Gel Crossmatch Short CBC 04/03/18 04/04/18 Range/Units 13:37 05:07 WBC 8.0 (4.0-11.0) th/mm3 Hgb 8.5 L 8.0 L (11.6-15.3) gm/dL Hct 24.7 L 23.9 L (35.0-46.0) % Plt Count 212 D (150-450) th/mm3 BMP 04/04/18 05:07 Sodium 142 Potassium 3.9 Chloride 108 H Carbon Dioxide 28.7 BUN 21 H Creatinine 0.71 Calcium 8.6 Liver Function 04/04/18 Range/Units 05:07 Total Bilirubin 1.2 H (0.2-1.0) mg/dL AST 49 H (15-37) U/L ALT 24 (10-53) U/L Alkaline Phosphatase 56 (45-117) U/L Albumin 2.4 L (3.4-5.0) g/dL <Donna Guzman T - 04/04/18 10:37> Physical Exam Vital signs: Vital Signs 04/03/18 20:00 04/04/18 00:00 04/04/18 04:00 Temperature 98.8 F 98.0 F 98.4 F Pulse Rate 98 H 87 56 L Respiratory Rate 16 16 16 Blood Pressure 115/57 L 121/57 L 141/64 H Pulse Oximetry 96 94 L 93 L 04/04/18 08:00 04/04/18 12:00 04/04/18 15:51 Temperature 97.6 F 98.3 F 98.9 F Pulse Rate 90 100 H 95 H Respiratory Rate 18 18 18 Blood Pressure 115/57 L 104/53 L 151/69 H Pulse Oximetry 90 L 91 L 96 Intake & Output 04/03/18 04/04/18 04/04/18 18:59 06:59 18:59 Output Total 650 / 650 Balance -650 / -650 Weight 88.4 kg Output: Urine 650 / 650 Other: # Voids 1 Date of Last Bowel Movement 03/30/18 03/30/18 <Benjamin Calero L - 04/04/18 17:49> Vital Signs 04/03/18 12:00 04/03/18 16:00 04/03/18 20:00 Temperature 98.8 F 98.3 F 98.8 F Pulse Rate 75 99 H 98 H Respiratory Rate 17 18 16 Blood Pressure 103/51 L 114/69 115/57 L Pulse Oximetry 92 L 94 L 96 04/04/18 00:00 04/04/18 04:00 04/04/18 08:00 Temperature 98.0 F 98.4 F 97.6 F Pulse Rate 87 56 L 90 Respiratory Rate 16 16 18 Blood Pressure 121/57 L 141/64 H 115/57 L Pulse Oximetry 94 L 93 L 90 L Intake & Output 04/03/18 04/04/18 04/04/18 18:59 06:59 18:59 Output Total 650 / 650 Balance -650 / -650 Weight 88.4 kg Output: Urine 650 / 650 Other: # Voids 1 Date of Last Bowel Movement 03/30/18 03/30/18 <Donna Guzman Calle T - 04/04/18 10:37> Narrative: GENERAL: Well-nourished, well-developed patient. No acute distress. SKIN: Warm and dry. No rash. EYES: No scleral icterus. No injection or drainage. PERRLA. EOMI. HENT: Normocephalic. Atraumatic. MMM. NECK: Supple, trachea midline. No JVD or lymphadenopathy. CARDIOVASCULAR: Irregularly irregular heart rate. RESPIRATORY: Breath sounds equal bilaterally. No accessory muscle use. CTAB. GASTROINTESTINAL: Abdomen soft, non-tender, nondistended. BS WNL. MUSCULOSKELETAL: Patient has significant edema at all MCPs on right hand with some slight ecchymosis overlying. Per patient and family the hand has significantly bettered since before. Patient also very sore over the right hip. Patient's range of motion is limited by pain. Both legs of equal length with good capillary refill and sensation in lower and upper extremities. NEURO/PSYCH: Afocal. Awake, alert, and oriented x3. <Donna Guzman T - 04/04/18 13:58> - Urinary Catheter Management Indwelling Urethral Catheter Cath placed during this visit: no <Benjamin Calero - 04/04/18 17:49> yes <Donna Guzman T - 04/04/18 13:58> Reason for continuing: Not indwelling catheter <Donna Guzman T - 04/04/18 10 :37> Insertion date: 03/31/18 <Donna Guzman Calle T - 04/04/18 10:37> Insertion time: 10:00 <Donna Guzman Calle T - 04/04/18 10:37> Straight Cath placed during this visit: no <Benjamin Calero - 04/04/18 17:49> yes, but has since been removed by the nurse <Donna Guzman T - 04/04/18 13:58> Reason for continuing: Not indwelling catheter <Donna Guzman T - 04/04/18 10 :37> Insertion date: 04/03/18 <Donna Guzman Calle T - 04/04/18 10:37> Insertion time: 02:30 <Donna Guzman Calle T - 04/04/18 10:37> Removal date: 04/03/18 <Donna Guzman Calle T - 04/04/18 10:37> Removal time: 02:35 <Donna Guzman Calle T - 04/04/18 10:37> Assessment and Plan - Assessment (1) Closed comminuted intertrochanteric fracture of right femur Code(s): S72.141A - Displaced intertrochanteric fracture of right femur, initial encounter for closed fracture Status: Acute (2) Fracture of radius, distal, right, closed Code(s): S52.501A - Unspecified fracture of the lower end of right radius, initial encounter for closed fracture Status: Acute (3) Normocytic anemia Code(s): D64.9 - Anemia, unspecified Status: Acute (4) Lightheadedness Code(s): R42 - Dizziness and giddiness Status: Acute (5) Hypertension Code(s): I10 - Essential (primary) hypertension Status: Acute (6) Nutrition, metabolism, and development symptoms Code(s): R63.8 - Other symptoms and signs concerning food and fluid intake Status: Acute <Benjamin Calero - 04/04/18 17:49> (1) Closed comminuted intertrochanteric fracture of right femur Code(s): S72.141A - Displaced intertrochanteric fracture of right femur, initial encounter for closed fracture Status: Acute Plan: Now POD#3 s/p right hip open reduction internal fixation * [place] consulted, appreciate recs * Alendronate weekly * Lovenox VTE ppx * Pain control with [place]/morphine PRN * Constipation protocol * PT/OT (2) Fracture of radius, distal, right, closed Code(s): S52.501A - Unspecified fracture of the lower end of right radius, initial encounter for closed fracture Status: Acute Plan: Now POD#3 s/p right wrist closed reduction and casting * Ortho consulted, appreciate recs * Plan as above for hip fracture (3) Normocytic anemia Code(s): D64.9 - Anemia, unspecified Status: Acute Plan: Patient had continuing lower good hemoglobin since admission. Patient was admitted with a hemoglobin of 13.8 and has gradually decreased daily to last hemoglobin of 7.4. Patient has no obvious hematoma or source of bleeding. She denies any bloody or dark stools. -H&H stable -Follow-up with Hemoccult -Transfuse below 7 (4) Lightheadedness Code(s): R42 - Dizziness and giddiness Status: Acute Plan: Improved; felt lightheaded prior to fall. Suspecting orthostatic hypotension. Unable to get orthostatic BPs due to fracture Troponin negative x2 * Echo: EF 50-55% with some mitral regurgitation * US carotids: Right internal carotid artery injury: Mild to moderate visible plaque without significant stenosis, left internal carotid artery: Mild to moderate visible plaque without significant stenosis (5) Hypertension Code(s): I10 - Essential (primary) hypertension Status: Acute Plan: Continue home medication, metoprolol 25 twice daily (6) Nutrition, metabolism, and development symptoms Code(s): R63.8 - Other symptoms and signs concerning food and fluid intake Status: Acute Plan: Fluids: PO only Electrolytes: Replete as needed Nutrition: Regular diet DVT prophylaxis: SCDs, Lovenox Dispo: Discharge to [place] tomorrow with Lovenox or Xarelto <Donna Guzman T - 04/04/18 13:49> - Attending Attestation The exam, history, and the medical decision-making described in the above note were completed with the assistance of the resident physician. I reviewed and agree with the findings presented. I attest that I had a [id number] encounter with the patient on the same day, and personally performed and documented my assessment and findings in the medical record. <Benjamin Calero - 04/04/18 17:49> <Donna Guzman T - Last Filed: 04/04/18 13:49> (1) Closed comminuted intertrochanteric fracture of right femur Qualifiers: Encounter type: initial encounter Qualified Code(s): S72.141A - Displaced intertrochanteric fracture of right femur, initial encounter for closed fracture (2) Fracture of radius, distal, right, closed Qualifiers: Encounter type: initial encounter (5) Hypertension Qualifiers: Hypertension type: essential hypertension Qualified Code(s): I10 - Essential (primary) hypertension <Benjamin Calero - Last Filed: 04/04/18 17:49> (1) Closed comminuted intertrochanteric fracture of right femur Qualifiers: Encounter type: initial encounter Qualified Code(s): S72.141A - Displaced intertrochanteric fracture of right femur, initial encounter for closed fracture (2) Fracture of radius, distal, right, closed Qualifiers: Encounter type: initial encounter (5) Hypertension Qualifiers: Hypertension type: essential hypertension Qualified Code(s): I10 - Essential (primary) hypertension <Donna Guzman - Last Filed: 04/04/18 13:49> (1) Closed comminuted intertrochanteric fracture of right femur Qualifiers: Encounter type: initial encounter Qualified Code(s): S72.141A - Displaced intertrochanteric fracture of right femur, initial encounter for closed fracture (2) Fracture of radius, distal, right, closed Qualifiers: Encounter type: initial encounter (5) Hypertension Qualifiers: Hypertension type: essential hypertension Qualified Code(s): I10 - Essential (primary) hypertension <Benjamin Calero - Last Filed: 04/04/18 17:49> (1) Closed comminuted intertrochanteric fracture of right femur Qualifiers: Encounter type: initial encounter Qualified Code(s): S72.141A - Displaced intertrochanteric fracture of right femur, initial encounter for closed fracture (2) Fracture of radius, distal, right, closed Qualifiers: Encounter type: initial encounter (5) Hypertension Qualifiers: Hypertension type: essential hypertension Qualified Code(s): I10 - Essential (primary) hypertension
--- NOTE | 2018-04-04 14:59 | ECG ---
Date Performed: 04/04/2018 Time Performed: 10:43:45 PTAGE: 83 years EKG: SINUS TACHYCARDIA WITH FREQUENT SUPRAVENTRICULAR PREMATURE COMPLEXES NONSPECIFIC ST & T-WAV E ABNORMALITY Since the previous tracing, no significant change noted ABNORMAL RHYTHM ECG PREVIOUS TRACING : 03/31/2018 17.29 DOCTOR: Amando Rivera Interpretating Date/Time 04/04/2018 14:51:02
--- NOTE | 2018-04-04 18:49 | P.PNOP ---
Subjective Interval history: Doing better today. Plan for d/c to [facility] likely tomorrow. Physical Exam Vital signs: Vital Signs 04/03/18 20:00 04/04/18 00:00 04/04/18 04:00 Temperature 98.8 F 98.0 F 98.4 F Pulse Rate 98 H 87 56 L Respiratory Rate 16 16 16 Blood Pressure 115/57 L 121/57 L 141/64 H Pulse Oximetry 96 94 L 93 L 04/04/18 08:00 04/04/18 12:00 04/04/18 15:51 Temperature 97.6 F 98.3 F 98.9 F Pulse Rate 90 100 H 95 H Respiratory Rate 18 18 18 Blood Pressure 115/57 L 104/53 L 151/69 H Pulse Oximetry 90 L 91 L 96 Intake & Output 04/03/18 04/04/18 04/04/18 18:59 06:59 18:59 Intake Total 960 / 960 Output Total 650 / 650 Balance -650 / -650 960 / 960 Weight 88.4 kg Intake: Oral 960 / 960 Output: Urine 650 / 650 Other: # Voids 1 4 Date of Last Bowel Movement 03/30/18 03/30/18 # Bowel Movements 0 Narrative: RLE dressing with slight drainage. Neurovascularly intact distally. RUE cast in place. Wiggles fingers with good capillary refill. - Urinary Catheter Management Indwelling Urethral Catheter Cath placed during this visit: yes Reason for continuing: Not indwelling catheter Insertion date: 03/31/18 Insertion time: 10:00 Straight Cath placed during this visit: yes, but has since been removed by the nurse Reason for continuing: Not indwelling catheter Insertion date: 04/03/18 Insertion time: 02:30 Removal date: 04/03/18 Removal time: 02:35 Results - Labs CBC & Chem 7: 04/04/18 05:07 04/04/18 05:07 Laboratory Results - last 24 hr 04/01/18 04/04/18 04/04/18 10:59 05:07 05:07 WBC 8.0 RBC 2.75 L Hgb 8.0 L Hct 23.9 L MCV 86.9 MCH 29.3 MCHC 33.7 RDW 14.7 Plt Count 212 D MPV 7.5 Neut % (Auto) 64.8 Lymph % (Auto) 21.0 Edwards % (Auto) 11.3 H Eos % (Auto) 2.2 Baso % (Auto) 0.7 Neut # (Auto) 5.2 Lymph # (Auto) 1.7 Edwards # (Auto) 0.9 Eos # (Auto) 0.2 Baso # (Auto) 0.1 WBC Differential . Differential Comment Auto diff final Sodium 142 Potassium 3.9 Chloride 108 H Carbon Dioxide 28.7 Anion Gap 5 BUN 21 H Creatinine 0.71 Estimated GFR 78 L Random Glucose 108 H Calcium 8.6 Total Bilirubin 1.2 H AST 49 H ALT 24 Alkaline Phosphatase 56 Troponin I Total Protein 5.9 L D Albumin 2.4 L MTS Gel Crossmatch See Detail 04/04/18 12:06 WBC RBC Hgb Hct MCV MCH MCHC RDW Plt Count MPV Neut % (Auto) Lymph % (Auto) Edwards % (Auto) Eos % (Auto) Baso % (Auto) Neut # (Auto) Lymph # (Auto) Edwards # (Auto) Eos # (Auto) Baso # (Auto) WBC Differential Differential Comment Sodium Potassium Chloride Carbon Dioxide Anion Gap BUN Creatinine Estimated GFR Random Glucose Calcium Total Bilirubin AST ALT Alkaline Phosphatase Troponin I Less than 0.02 L Total Protein Albumin MTS Gel Crossmatch Assessment and Plan - Problem List (1) Closed comminuted intertrochanteric fracture of right femur Code(s): S72.141A - Displaced intertrochanteric fracture of right femur, initial encounter for closed fracture Status: Acute Qualifiers: Encounter type: initial encounter Qualified Code(s): S72.141A - Displaced intertrochanteric fracture of right femur, initial encounter for closed fracture (2) Fracture of radius, distal, right, closed Code(s): S52.501A - Unspecified fracture of the lower end of right radius, initial encounter for closed fracture Status: Acute Qualifiers: Encounter type: initial encounter - Assessment and Plan 83 year old female POD 3 s/p IMN right intertrochanteric femur fracture and closed reduction/casting right distal radius fracture Plan: PWB 50% RLE NWB R wrist, ok to weight bear through elbow PT for mobilization Follow H&H Lovenox VTE ppx - can transition to Xarelto for 14 days upon discharge Ice/elevation RUE OK to d/c from orthopedic standpoint; recommend followup with home orthopedic surgeon in 2 weeks or upon return to [place]
[2018-04-05] MEDS: Metoprolol Tartrate 25 MG Tablet PO SCH ×2 (03:34→08:38)
[2018-04-05] MEDS: Senna/Docusate Sodium 8.6/50 MG Tablet PO SCH ×2 (03:35→08:38)
[2018-04-05] MEDS: Enoxaparin Inj 40 MG/0.4 ML Syringe SQ SCH (08:38)
--- NOTE | 2018-04-05 11:59 | P.PNFP ---
Subjective Interval history: No acute events overnight. Patient lying in bed comfortably. Daughter and son- in-law at bedside. Patient states that she is ready to go to rehab. Pain well controlled on pain meds. Denies chest pain, shortness of breath, nausea vomiting , and abdominal pain. Patient will be discharged to [facility]. Discussed with family about anticoagulation for 14 days and following up with Ortho in 2 weeks. <Donna Guzman T - 04/05/18 14:02> Results - Labs Result diagrams: 04/04/18 05:07 04/04/18 05:07 <Benjamin Calero - 04/05/18 16:01> Abnormal lab results 04/04/18 Range/Units 12:06 Troponin I Less than 0.02 L (0.02-0.05) ng/mL Cardiac Enzymes 04/04/18 Range/Units 12:06 Troponin I Less than 0.02 L (0.02-0.05) ng/mL <Donna Guzman T - 04/05/18 11:58> Physical Exam Vital signs: Vital Signs 04/04/18 20:00 04/05/18 00:00 04/05/18 04:00 Temperature 99.4 F 98.6 F 99.5 F Pulse Rate 55 L 106 H 84 Respiratory Rate 16 18 18 Blood Pressure 124/58 L 106/57 L 117/70 Pulse Oximetry 94 L 92 L 94 L 04/05/18 08:00 04/05/18 12:00 04/05/18 12:22 Temperature 99.2 F 99.6 F Pulse Rate 98 H 66 Respiratory Rate 17 18 18 Blood Pressure 144/70 H 110/55 L Pulse Oximetry 94 L 97 Intake & Output 04/04/18 04/05/18 04/05/18 18:59 06:59 18:59 Intake Total 960 / 960 Balance 960 / 960 Weight 88.5 kg Intake: Oral 960 / 960 Other: # Voids 4 2 Date of Last Bowel Movement 04/05/18 # Bowel Movements 0 1 <Benjamin Calero - 04/05/18 16:01> Vital Signs 04/04/18 12:00 04/04/18 15:51 04/04/18 20:00 Temperature 98.3 F 98.9 F 99.4 F Pulse Rate 100 H 95 H 55 L Respiratory Rate 18 18 16 Blood Pressure 104/53 L 151/69 H 124/58 L Pulse Oximetry 91 L 96 94 L 04/05/18 00:00 04/05/18 04:00 04/05/18 08:00 Temperature 98.6 F 99.5 F 99.2 F Pulse Rate 106 H 84 98 H Respiratory Rate 18 18 17 Blood Pressure 106/57 L 117/70 144/70 H Pulse Oximetry 92 L 94 L 94 L Intake & Output 04/04/18 04/05/18 04/05/18 18:59 06:59 18:59 Intake Total 960 / 960 Balance 960 / 960 Weight 88.5 kg Intake: Oral 960 / 960 Other: # Voids 4 2 Date of Last Bowel Movement 04/05/18 # Bowel Movements 0 1 <Donna Guzman - 04/05/18 11:58> Narrative: GENERAL: Well-nourished, well-developed patient. No acute distress. SKIN: Warm and dry. No rash. CARDIOVASCULAR: Irregularly irregular heart rate. RESPIRATORY: Breath sounds equal bilaterally. No accessory muscle use. CTAB. GASTROINTESTINAL: Abdomen soft, non-tender, nondistended. BS WNL. MUSCULOSKELETAL: Patient has edema at all MCPs on right hand with some slight ecchymosis overlying. Improved from prior. Able to wiggle figures. Good capillary refills. Bandage covering incisions of right hip. Patient's range of motion is limited by pain. Both legs of equal length with good capillary refill and sensation in lower and upper extremities. NEURO/PSYCH: Afocal. Awake, alert, and oriented x3. <Donna Guzman - 04/05/18 14:02> - Urinary Catheter Management Indwelling Urethral Catheter Cath placed during this visit: no <Benjamin Calero L - 04/05/18 16:01> yes <Donna Guzman - 04/05/18 14:02> Reason for continuing: Not indwelling catheter <Donna Guzman - 04/05/18 11 :58> Insertion date: 03/31/18 <Donna Guzman T - 04/05/18 11:58> Insertion time: 10:00 <Donna Guzman 04/05/18 11:58> Straight Cath placed during this visit: no <Benjamin Calero L - 04/05/18 16:01> yes, but has since been removed by the nurse <Donna Guzman T - 04/05/18 14:02> Reason for continuing: Not indwelling catheter <Donna Guzman T - 04/05/18 11 :58> Insertion date: 04/03/18 <Donna Guzman T - 04/05/18 11:58> Insertion time: 02:30 <Donna Guzman T - 04/05/18 11:58> Removal date: 04/03/18 <Donna Guzman T - 04/05/18 11:58> Removal time: 02:35 <Donna Guzman T - 04/05/18 11:58> Assessment and Plan - Assessment (1) Closed comminuted intertrochanteric fracture of right femur Code(s): S72.141A - Displaced intertrochanteric fracture of right femur, initial encounter for closed fracture Status: Acute (2) Fracture of radius, distal, right, closed Code(s): S52.501A - Unspecified fracture of the lower end of right radius, initial encounter for closed fracture Status: Acute (3) Normocytic anemia Code(s): D64.9 - Anemia, unspecified Status: Acute (4) Lightheadedness Code(s): R42 - Dizziness and giddiness Status: Acute (5) Hypertension Code(s): I10 - Essential (primary) hypertension Status: Chronic (6) Nutrition, metabolism, and development symptoms Code(s): R63.8 - Other symptoms and signs concerning food and fluid intake Status: Acute <Benjamin Calero - 04/05/18 16:01> (1) Closed comminuted intertrochanteric fracture of right femur Code(s): S72.141A - Displaced intertrochanteric fracture of right femur, initial encounter for closed fracture Status: Acute Plan: Now POD#4 s/p right hip open reduction internal fixation * [facility]rotho consulted, appreciate recs * Alendronate weekly * Lovenox VTE ppx, will discharge patient with 14 days of Xarelto * F/u in 2 weeks * Pain control with [place]/morphine PRN * Constipation protocol * PT/OT (2) Fracture of radius, distal, right, closed Code(s): S52.501A - Unspecified fracture of the lower end of right radius, initial encounter for closed fracture Status: Acute Plan: Now POD#4 s/p right wrist closed reduction and casting * Ortho consulted, appreciated recs * OK to weight bear through elbow * Plan as above for hip fracture (3) Normocytic anemia Code(s): D64.9 - Anemia, unspecified Status: Acute Plan: Patient had continuing lower good hemoglobin since admission. Patient was admitted with a hemoglobin of 13.8 and has gradually decreased daily to last hemoglobin of 7.4. Patient has no obvious hematoma or source of bleeding. She denies any bloody or dark stools. -H&H stable -Transfuse below 7 (4) Lightheadedness Code(s): R42 - Dizziness and giddiness Status: Acute Plan: Improved; felt lightheaded prior to fall. Suspecting orthostatic hypotension. Unable to get orthostatic BPs due to fracture Troponin negative x2 * Echo: EF 50-55% with some mitral regurgitation * US carotids: Right internal carotid artery injury: Mild to moderate visible plaque without significant stenosis, left internal carotid artery: Mild to moderate visible plaque without significant stenosis (5) Hypertension Code(s): I10 - Essential (primary) hypertension Status: Acute Plan: Continue home medication, metoprolol 25 twice daily (6) Nutrition, metabolism, and development symptoms Code(s): R63.8 - Other symptoms and signs concerning food and fluid intake Status: Acute Plan: Fluids: PO only Electrolytes: Replete as needed Nutrition: Regular diet DVT prophylaxis: SCDs, Lovenox Dispo: Discharge to [facility] tomorrow Xarelto for 14 days, F/u with ortho in 2 weeks <Donna Guzman T - 04/05/18 13:56> - Attending Attestation The exam, history, and the medical decision-making described in the above note were completed with the assistance of the resident physician. I reviewed and agree with the findings presented. I attest that I had a [id number] encounter with the patient on the same day, and personally performed and documented my assessment and findings in the medical record. Patient evaluated with resident team this morning. Patient with right femur and right distal radius fracture. Receiving anticoagulation post-surgery. Plan to go to [facility] for rehab today. <Benjamin Calero 04/05/18 16:01> <Donna Guzman T - Last Filed: 04/05/18 13:56> (1) Closed comminuted intertrochanteric fracture of right femur Qualifiers: Encounter type: initial encounter Qualified Code(s): S72.141A - Displaced intertrochanteric fracture of right femur, initial encounter for closed fracture (2) Fracture of radius, distal, right, closed Qualifiers: Encounter type: initial encounter (5) Hypertension Qualifiers: Hypertension type: essential hypertension Qualified Code(s): I10 - Essential (primary) hypertension <AbdiasBenjamin Garcia - Last Filed: 04/05/18 16:01> (1) Closed comminuted intertrochanteric fracture of right femur Qualifiers: Qualified Code(s): S72.141A - Displaced intertrochanteric fracture of right femur, initial encounter for closed fracture (5) Hypertension Qualifiers: Qualified Code(s): I10 - Essential (primary) hypertension <Donna Guzman - Last Filed: 04/05/18 13:56> (1) Closed comminuted intertrochanteric fracture of right femur Qualifiers: Encounter type: initial encounter Qualified Code(s): S72.141A - Displaced intertrochanteric fracture of right femur, initial encounter for closed fracture (2) Fracture of radius, distal, right, closed Qualifiers: Encounter type: initial encounter (5) Hypertension Qualifiers: Hypertension type: essential hypertension Qualified Code(s): I10 - Essential (primary) hypertension <Benjamin Calero - Last Filed: 04/05/18 16:01> (1) Closed comminuted intertrochanteric fracture of right femur Qualifiers: Qualified Code(s): S72.141A - Displaced intertrochanteric fracture of right femur, initial encounter for closed fracture (5) Hypertension Qualifiers: Qualified Code(s): I10 - Essential (primary) hypertension
[2018-04-05 13:16] VITALS: BP 110/55; PULSE 66; RESP 18; TEMP 99.6; O2SAT 97
--- NOTE | 2018-04-05 14:06 | P.DS ---
Date of admission: 03/31/18 10:24 Primary care physician: UNKNOWN Brief History from admission: This patient is an 83-year-old female with a history of bilateral knee replacement and hypertension who presents the ED after an unwitnessed mechanical fall. Patient is originally from [place] and is here locally visiting her granddaughter with her daughter and son-in-law. Patient reports that she originally got up around 0630 to go to the restroom and upon getting out of bed felt lightheaded and fell onto a carpeted floor. Per patient she fell onto her right hand side landing on her outstretched hand as well as her right hip and denies ever hitting her head. Patient reports pain immediately after falling. Patient reports that at no point did she perceive a gap in time or felt that she had lost consciousness, there is no confusion immediately afterwards, she did not have any incontinence. Patient reports he was on the floor for approximately an hour before found by family. 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 Family reports no shaking upon finding the patient on the floor. The patient reports no change in vision prior to falling, no chest pain or palpitations, no nausea or vomiting, or any focal weakness or loss of tone. Patient reports no changes in recent health and has been eating and drinking normally and felt that she is very hydrated. She does report feeling dizzy last night and according to granddaughter her gait was a little less sturdy than usual. According to the patient there are rare circumstances where she has felt dizzy in the past but has never had a mechanical fall due to her dizziness. She has also experienced imbalance intermittently for many years. She denies any recent illnesses, difficulty urinating, urinary urgency, pain with urination, chest pain, chest palpitations , fevers, chills, nausea or vomiting. PMHx: Hypertension, fibroids status post total hysterectomy, "leaky heart valve " Surgical Hx: Bilateral knee replacement, umbilical hernia repair, tonsillectomy , right breast lumpectomy with benign pathology, cholecystectomy, total vaginal hysterectomy with bilateral salpingo-oophorectomy Medications: Alendronate, aspirin, vitamin D, metoprolol, multivitamin FHx: Sister had breast cancer, sister had stroke, another sister had Alzheimer's , brother had unknown type of cancer. Children are healthy. Social Hx: Patient has been for the last 25 years and lives at home alone in [place]. Her daughter lives next door as well as multiple grandchildren that live in the area. 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 She reports smoking 1/4 pack for 20 years. Patient denies any current use of alcohol as well as any other illicit or nonprescribed drugs. Allergies: None that she knows of but reports that have been foods and fast to make her swell up Code Status: DNR DS: Diagnosis - Discharge Diagnosis (1) Closed comminuted intertrochanteric fracture of right femur Status: Acute (2) Fracture of radius, distal, right, closed Status: Acute (3) Normocytic anemia Status: Acute (4) Lightheadedness Status: Acute (5) Hypertension Status: Acute (6) Nutrition, metabolism, and development symptoms Status: Acute DS: Medications - Discharge Medications Prescriptions: hydrocodone-acetaminophen 1 tab PO Q4H PRN #18 tab PRN Reason: Pain Scale 3 To 5 DS: Summary - Time Spent with Patient Total time spent providing and/or coordinating discharge services: - Quality: VTE Deep Vein Thrombosis/Pulmonary Embolism Present on Admission: No Exam Vital signs: Vital Signs 04/04/18 15:51 04/04/18 20:00 04/05/18 00:00 Temperature 98.9 F 99.4 F 98.6 F Pulse Rate 95 H 55 L 106 H Respiratory Rate 18 16 18 Blood Pressure 151/69 H 124/58 L 106/57 L Pulse Oximetry 96 94 L 92 L 04/05/18 04:00 04/05/18 08:00 04/05/18 12:00 Temperature 99.5 F 99.2 F 99.6 F Pulse Rate 84 98 H 66 Respiratory Rate 18 17 18 Blood Pressure 117/70 144/70 H 110/55 L Pulse Oximetry 94 L 94 L 97 Intake & Output 04/04/18 04/05/18 04/05/18 18:59 06:59 18:59 Intake Total 960 / 960 Balance 960 / 960 Weight 88.5 kg Intake: Oral 960 / 960 Other: # Voids 4 2 Date of Last Bowel Movement 04/05/18 # Bowel Movements 0 1 Results - Impressions ITS Impressions Carotid Doppler Study 03/31/18 00:00 CONCLUSION: 1. Right Internal Carotid Artery: Mild to moderate visible plaque without significant stenosis. 2. Left Internal Carotid Artery: Mild to moderate visible plaque without significant stenosis. Femur X-Ray 03/31/18 00:00 CONCLUSION: Right proximal femur fracture with displaced trochanteric fragments identified. Ankle X-Ray 03/31/18 07:45 CONCLUSION: No acute bony abnormalities. Soft tissue swelling laterally. Chest X-Ray 03/31/18 07:45 CONCLUSION: No acute findings. Hip X-Ray 04/01/18 00:00 CONCLUSION: Status post ORIF of right proximal femur fracture with hardware in good position. Wrist X-Ray 04/01/18 00:00 CONCLUSION: Adequately aligned distal radial fracture status post casting. Discharge Plan - Discharge Disposition Patient Disposition: [facility] Inpatient - Discharge Condition Condition: Good - Discharge Order Discharge Orders: Discharge Order (Routine); Ordered 04/05/18 Ordered By: Sloan Bowens - Discharge Details Anticipated Discharge Date: 04/05/18 - Physicians Team Primary Care Provider: UNKNOWN, Attending Provider: Benjamin Calero Other Providers: Karen Moore MD
--- NOTE | 2018-04-09 12:06 | P.OP ---
- Preoperative Diagnosis (1) Closed comminuted intertrochanteric fracture of right femur (2) Fracture of radius, distal, right, closed - Postoperative Diagnosis (1) Closed comminuted intertrochanteric fracture of right femur (2) Fracture of radius, distal, right, closed Date of procedure: 04/01/18 Procedure: 1. open reduction internal fixation right intertrochanteric femur fracture with subtrochanteric extension 2. closed reduction and casting right intraarticular distal radius fracture Implants: Synthes TFNa 11x 380 mm nail, 90 mm blade Anesthesia: GETA Surgeon: Karen Moore MD Estimated blood loss (mL): 250 Pathology: none sent Operation and Findings: Patient was brought back to the operating room and general anesthesia was administered. She was then transferred to the [place] table with a well padded perineal post. The right leg was placed in a well padded boot and the left leg positioned in the well leg cam. C-arm was brought in to confirm adequate imaging prior to sterile prep and drape. Prophylactic antibiotics were given and time out performed prior to start of procedure. I began with gentle manipulation of the fracture. It was noted to be comminuted with extension to the subtrochanteric region and proximal fragment was flexed. I was unable to get this reduced well with closed means so decision was made to perform open reduction. A longitudinal incision was made over the lateral aspect of the proximal femur and taken down through skin, subcutaneous tissue and fascia. The fracture was then encountered. Large clamps were used to reduce the fracture and hold reduction. Another incision was then made proximal to the greater trochanter and start point for the nail was identified. Appropriate start point confirmed with AP and lateral views. Opening reamer was then used and a ball tip guidewire placed past the fracture site down to the distal femur. Appropriate nail length measured and a 380 mm nail selected. Canal was then reamed sequentially until good chatter was achieved and an 11 mm diameter nail selected. The nail was then placed and triple sleeve guide placed through the jig for helical blade insertion. This was able to be placed within the previous incision used for open reduction. Guidewire was placed first and good position confirmed with AP and lateral views. This was measured and a 90mm helical blade was selected and impacted into place. Once proper position confirmed, attention was turned to distal locking and appropriate sized distal locking screw was placed dynamically utilizing perfect [place] technique. Final images confirming appropriate fracture reduction and hardware position were taken. Wounds were then copiously irrigated and closed in layered fashion. Sterile dressings were applied and drapes removed. I then turned my attention to the right wrist. Gentle reduction was performed and checked on imaging. A well molded short arm cast was then placed and final images taken in the cast, confirming adequate reduction. The patient was then transferred back to her bed, awoken from general anesthesia and taken to the recovery room in good condition.
== END 2018-04-05 15:20 ==
LOC: NEPC 07:39 → NEDA 10:24 → N06 13:53
PROVIDERS: ADMIT Family Medicine; ATTEND Family Medicine